=== PATIENT | male | born 1940 | race Caucasian/White ===

== ENCOUNTER 2023-09-07 07:29 | Emergency (ER) | payer MEDICARE, SELFPAY ==
[2023-09-07] VITALS (10 sets, daily range): BP systolic 112–155; BP diastolic 82–102; PULSE 83; O2SAT 98; BMI 26.1
[2023-09-07 07:50] LABS: % Basophils 0.5 % (0-2); % Eosinophils 2.9 % (0-6); % Immature Granulocytes 0.3 % (0-0.5); % Lymphocytes 26.1 % (20.5-51.1); % Monocytes 10.6 % (1.7-9.3); % Neutrophils 59.6 % (42.2-75.2); Absolute Eosinophils 0.2 10^3/uL (0-0.7); Absolute Lymphocytes 1.9 10^3/uL (1.2-3.4); Absolute Monocytes 0.8 10^3/uL (0.1-0.6); Absolute Neutrophils 4.4 10^3/uL (1.4-6.5); Hematocrit 39.6 % (39.0-52.0); Hemoglobin 13.6 g/dL (13.0-18.0); Mean Corp Hgb Conc. 34.3 g/dL (33.0-37.0); Mean Corpuscular Hgb 27.9 pg (27.0-31.0); Mean Corpuscular Volume 81.3 fL (80.0-94.0); Mean Platelet Volume 9.3 fL (7.4-10.4); Nucleated Red Blood Cells % 0 % (-); Platelet Count 217 10^3/uL (130-400); Red Blood Cell Count 4.87 10^6/uL (4.70-6.10); White Blood Cell Count 7.3 10^3/uL (4.8-10.8)
[2023-09-07 07:51] LABS: Urine Albumin Negative (Neg - Trace); Urine Bilirubin Negative (Negative); Urine Character Clear (Clear); Urine Color Yellow; Urine Glucose Negative (Negative); Urine Ketone Negative (Negative); Urine Leukocyte Negative (Negative); Urine Nitrite Negative (Negative); Urine Occult Blood Negative (Negative); Urine Urobilinogen Negative (Neg - 1+); Urine pH 6.5 (5.0-9.0)
--- NOTE | 2023-09-07 08:08 | ED.GENMED ---
History of Present Illness
<Lucrecia Yates MD, Resident - Last Filed: 09/07/23 12:09>
General
Chief Complaint: Fall
Source: patient
Time Seen by Provider: 09/07/23 07:46
History of Present Illness
History of Present Illness:
Pt is a 83 YO M with history of CAD, stroke and HTN on blood thinners and reports falling from curb and hitting back of head this morning when retrieving a package. Pt usually uses a cane for ambulation, but did not when fall occurred. Was brought
to ED by and daughter. Reports no headaches, pain in head or neck, LOC, memory changes or ongoing weakness in extremities. Did report some blurriness at time of fall, now resolved, and loss of balance.
If applicable-neuro sx onset
Onset of symptoms known: Yes
Date of onset of symptoms: 09/07/23
Past History
<Lucrecia Yates MD, Resident - Last Filed: 09/07/23 12:09>
Past History
ED Past Medical History: Arrthythmia (Atrial fib), CAD, HTN, Hypercholesterolemia, NIDDM and [place]
ED Past Surgical History: Appendectomy, Bowel resection (Subtotal gastrectomy), Cardiac (Stents X 2), Cholecystectomy and Other
Social History
Tobacco: Non-smoker
Alcohol: Former
Drug: None
Personal:
Living: with family
Employment: Retired
Family History
Family History: Other (Noncontributory)
Review of Systems
<Lucrecia Yaets MD, Resident - Last Filed: 09/07/23 12:09>
Review of Systems
Allergies reviewed?: No
Constitutional: Reports no symptoms
EENT: Reports no symptoms and other (mild blurriness post fall)
Respiratory: Reports no symptoms
ABD/GI: Reports no symptoms
Musculoskeletal: Reports no symptoms
Neurological: Reports weakness and other (loss of balance)
Phy Exam
<Lucrecia Yates MD, Resident - Last Filed: 09/07/23 12:09>
General Physical Exam
General Presentation: well appearing and no apparent distress
General age: appears stated age
General Habitus: normal
General Mental: alert
Eye Exam
Eye Exam: PERRL, conjunctiva normal and visual sherwood normal
Cardiovascular Exam
Cardiovascular Exam: regular rate/rhythm, no edema, no gallop, no JVD and no murmur
Pulmonary Exam
Pulmonary Exam: lungs clear, no respiratory distress, no rales, chest non tender, no crackles, no rhonchi and no cough
Neurological Exam
Neurological Exam: alert, oriented x3, no motor deficits, no sensory deficits and other (slowed speech)
Musculoskeletal Exam
Musculoskeletal Exam: full ROM, no edema and other (no back or head pain)
Psychiatric Exam
Psychiatric Exam: other (unclear if pt is confused or just hard of hearing )
Course
<Lucrecia Yates MD, Resident - Last Filed: 09/07/23 12:09>
Orders/Labs/Results
Orders:
Orders
09/07/23 07:39
Electrocardiogram (*1) Urgent
Reason for Study: Atrial Fibrillation
EKG- Treatment ONCE
09/07/23 07:41
Basic Metabolic Panel Urgent
Comment: NO K HEM
Complete Blood Count/With Diff Urgent
Urinalysis Reflex To Culture Urgent
Date Specimen was Collected: 09/07/23
Time Specimen was Collected: 07:39
09/07/23 08:21
CT Head W/o Iv Contrast Urgent
Comment:
Reason For Exam: fall, hit head, xarelto
09/07/23 10:16
Physical Therapy Consult [Pt Eval And Treat] Urgent
Activity Level: With Assistance
09/07/23 11:21
Case Management Consult ONCE
Case Management Consult: Discharge Planning
Requested By:: NURSING
Abnormal Lab Results
09/07/23
07:41
RDW 15.0 H %
(11.5-14.5)
Absolute Monos (auto) 0.8 H 10^3/uL
(0.1-0.6)
Monocytes % 10.6 H %
(1.7-9.3)
Glucose 105 H mg/dl
(70-99)
09/07/23 07:41
09/07/23 07:41
Vital Signs
Initial and Last Documented VS:
Initial Vital Signs
Temp Pulse Resp BP Pulse Ox
98.1 F 89 16 149/89 97
09/07/23 07:33 09/07/23 07:33 09/07/23 07:33 09/07/23 07:33 09/07/23 07:33
Last Documented Vital Signs
Temp Pulse Resp BP Pulse Ox
98.1 F 82 11 155/95 97
09/07/23 07:33 09/07/23 12:00 09/07/23 12:00 09/07/23 12:00 09/07/23 12:00
<Jerry Alvarado, DO - Last Filed: 09/07/23 13:46>
Orders/Labs/Results
Orders:
Orders
09/07/23 07:39
Electrocardiogram (*1) Urgent
Reason for Study: Atrial Fibrillation
EKG- Treatment ONCE
09/07/23 07:41
Basic Metabolic Panel Urgent
Comment: NO K HEM
Complete Blood Count/With Diff Urgent
Urinalysis Reflex To Culture Urgent
Date Specimen was Collected: 09/07/23
Time Specimen was Collected: 07:39
09/07/23 08:21
CT Head W/o Iv Contrast Urgent
Comment:
Reason For Exam: fall, hit head, xarelto
09/07/23 10:16
Physical Therapy Consult [Pt Eval And Treat] Urgent
Activity Level: With Assistance
09/07/23 11:21
Case Management Consult ONCE
Case Management Consult: Discharge Planning
Requested By:: NURSING
Abnormal Lab Results
09/07/23
07:41
RDW 15.0 H %
(11.5-14.5)
Absolute Monos (auto) 0.8 H 10^3/uL
(0.1-0.6)
Monocytes % 10.6 H %
(1.7-9.3)
Glucose 105 H mg/dl
(70-99)
09/07/23 07:41
09/07/23 07:41
Vital Signs
Initial and Last Documented VS:
Initial Vital Signs
Temp Pulse Resp BP Pulse Ox
98.1 F 89 16 149/89 97
09/07/23 07:33 09/07/23 07:33 09/07/23 07:33 09/07/23 07:33 09/07/23 07:33
Last Documented Vital Signs
Temp Pulse Resp BP Pulse Ox
98.1 F 82 11 155/95 97
09/07/23 07:33 09/07/23 12:00 09/07/23 12:00 09/07/23 12:00 09/07/23 12:00
<Lucrecia Yates MD, Resident - Last Filed: 09/07/23 12:09>
MDM/Problems Addressed
Differential Diagnosis Includes:
fall
MDM/Problems Addressed:
83 YO M with history of stroke and frequent falls presented to ED after fall. He reports hitting the back of his head and is on blood thinners. Labs were normal and CT head was clear. Recommendations to DC home but to use walker consistently for
ambulatory support.
Chronic conditions affecting care:
stroke
Chronic conditions affecting care: HTN, CAD and Arrhythmia
Acute Exacerbation and/or Progression of Chronic Illness: HTN, CAD, Arrhythmia and Other (stroke)
<Lucrecia Yates MD, Resident - Last Filed: 09/07/23 12:09>
*Radiology
Radiology exam reviewed: preliminary read by ED provider
*Critical Care Note
Total Time (30-74mins, 75-104mins- exclusive of procedures): Not Applicable
<Jerry Alvarado, DO - Last Filed: 09/07/23 13:46>
*Radiology
Radiology exam reviewed: radiology read reviewed (CT head no acute findings)
*Pulse Oximetry
Patient hypoxic: no
*EKG
Interpreted by ED Provider?: Yes
EKG Intrepretation Date: 09/07/23
EKG Intrepretation Time: 07:49
Interpretation: abnormal
Comparison EKG: changes noted
Heart Rate: 81
Rate: normal
Rhythm: a-fib
[place]: normal axis
Interval: normal interval
QRS Pattern: normal QRS
Ischemia: non-specific ST changes
*Personal Vehicle Advisor Interpretation
Rate: normal
Interpretation: abnormal
Heart Rate: 80
Rhythm: a-fib
Data Reviewed
Review of Other/Old Records Reveals: Testing (EF 50-55 08/06/22)
Source: records
<Jerry Alvarado, - Last Filed: 09/07/23 13:46>
Patient Management
Discussion with other providers: Other (PT-pt ambulated well with walker)
Escalation/DeEscalation of care consider admission/obs:
admit not indicated
ED Attending Note
<Lucrecia Yates MD, Resident - Last Filed: 09/07/23 12:09>
-
Portions of this chart may have been created with voice recognition software.� Occasional wrong word or��sound alike� substitutions may have occurred due to the inherent limitations of voice recognition software.
<Jerry Alvarado DO - Last Filed: 09/07/23 13:46>
ED Attending Note
Patient seen and examined by attending physician: Yes
I performed a history and physical exam of patient and discussed management with resident, I reviewed resident's note and agree with documented findings and plan of care.: Yes
ED Attending Note:
I have reviewed and agree with history and treatment plan by Lucrecia Yates DO. My exam revealed
Physical Exam
General: no apparent distress, not acutely ill
Neck: supple. no meningeal signs. normal posterior pharynx
Heart: s1/s2 regular rate and rhythm, no murmur. equal radial
pulses.
HEENT: Pupils equal round reactive to light, EOMI
Lungs: no acute respiratory distress. clear bilaterally
Abdomen: normal bowel sounds. not tender. no CVAT
Neuro: alert and oriented. no focal neurological deficits cranial nerves II through XII intact
Skin: no rash, abrasion left thumb 0.5 cm
Psychiatric: well kept. interactive and cooperative
Extremities: no edema. no calf tenderness. negative homans. good distal pulses
83-year-old male with fall, admit not indicated. No signs of serious trauma. Patient ambulated well with walker with PT.
Discharge Plan
Departure
Patient Disposition: Home (Routine Discharge)
Date of Disposition: 09/07/23
Time of Disposition: 10:50
Patient with high blood pressure during this ER visit?: Yes
Condition: Fair
Discharge Problem:
Fall as cause of accidental injury at home as place of occurrence
Instructions: Preventing falls in adults, BLOOD PRESSURE
Prescriptions:
No Action
escitalopram oxalate [Lexapro] 10 mg Tablet
10 mg PO DAILY
isosorbide mononitrate 30 mg Tablet Extended Release 24 Hr
30 mg PO DAILY Qty: 30 11RF
Xarelto 20 mg Tablet
20 mg PO QPM Qty: 30 0RF
pantoprazole [Protonix] 40 mg tablet,delayed release (DR/EC)
40 mg PO DAILY Qty: 30 0RF
rosuvastatin 10 mg Tablet
10 mg PO DAILY Qty: 30 0RF
multivitamin [Daily Multi-Vitamin] Tablet
1 tab PO DAILY Qty: 30 0RF
trazodone 100 mg tablet
100 mg PO HS Qty: 30 0RF
tamsulosin 0.4 mg Capsule
0.4 mg PO DAILY Qty: 30 0RF
melatonin 3 mg Tablet
6 mg PO HS Qty: 60 0RF
lorazepam 0.5 mg Tablet
0.5 mg PO BID@0700,2000 Qty: 60 0RF
nitroglycerin 0.4 mg Tablet, Sublingual
0.4 mg sublingual [id number] PRN (Reason: CHEST PAIN) Qty: 10 0RF
metoprolol succinate [Toprol XL] 50 mg tablet extended release 24 hr
50 mg PO Q12H Qty: 60 0RF
Referrals:
Kristal Storm DO [Family Provider] - Call in 1-3 days for appt
Interventions
Interventions:
*Risk Screen - Suicide Last Done: 09/07/23 07:33
*General Assessment Last Done: 09/07/23 07:33
*Neglect/Abuse Screening Last Done: 09/07/23 07:33
*ED COVID-19 Vaccine History Last Done: 09/07/23 07:33
ED-Musculoskeletal Assessment Last Done: 09/07/23 07:37
ED- Neurological Assessment Last Done: 09/07/23 07:37
ED-Skin Assessment Last Done: 09/07/23 08:29
Discharge Date and Time
Print Language: KOREAN
[2023-09-07 08:14] LABS: Blood Urea Nitrogen 18 mg/dl (9-20); Calcium 9.2 mg/dl (8.4-10.2); Carbon Dioxide 28 mmol/L (22-30); Chloride 105 mmol/L (98-107); Estimated Creatinine Clearance 85 ml/min; Glucose 105 mg/dl (70-99); Sodium 137 mmol/L (135-145); eGFR > 60.00
--- NOTE | 2023-09-07 13:53 | CM ---
Received consult from ED for discharge planning. Met with patient's RN who confirmed that patient is stable medically. PT met with patient and upon using his walker is damian. Patient stated that he lives in an apartment with elevator access. He
confirmed that he is independent with all of his ADLs, personal care, dressing and bathing. 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 Besides his cane and walker he does have a w/c.
Patient has had VN in the past through [facility].
He has never been to a SNF in the past and does not want to transition to one now.
Patient is agreeable to VN through . Will make referral.
Patient has a prescription plan and uses, [facility] for all of his medications.
His PCP is Kristal Storm.
Permission was obtained to call patient's . Placed a call to her and she stated that she has a lot of marital strain as patient frequently falls but will neglect to use his walker. She stated that he will purposely neglect to do whatever is
indicated by medical staff. VN services were not helpful last time as, when they left, he would cease to do what they had advised, she relayed.
Patient's admitted that this is more of a personal issue between the two of them that has been going on for years. She stated that she has tried counseling and nothing has worked. She stated that their children are not that supportive as they
are 'tired of her complaining'
Patient's stated that is patient is medically stable, her daughter Yolanda will be in to pick him up soon.
Plan: Case management will continue to follow and assist with discharge planning. Home with VN.
--- NOTE | 2023-09-07 14:44 | VNURNOTE ---
Home Health Liaison spoke with patient's Abby to discuss VN nurse/therapy, visits, schedule and homebound status. Per spouse, last time they had home care 'it was a waste.' No penitentiary needs identified, but this author asked
patient's spouse if patient could benefit from home physical therapy due to frequent falls. Spouse stated patient had home P.T. in the past and 'yes'ed them' but refused to do exercises. Spouse declined services at this time. No referral placed.
== END 2023-09-07 15:00 | disposition home or self-care (01) ==
LOC: EMR 07:29
PROVIDERS: EMERGENCY PHYSICIAN Emergency Medicine; FAMILY PHYSICIAN Family Medicine
DX: S09.90XA Unspecified injury of head, initial encounter (principal); R53.1 Weakness; H53.8 Other visual disturbances; R26.89 Other abnormalities of gait and mobility; W10.1XXA Fall (on)(from) sidewalk curb, initial encounter; I25.10 Atherosclerotic heart disease of native coronary artery without angina pectoris; I10 Essential (primary) hypertension; E11.9 Type 2 diabetes mellitus without complications; E78.00 Pure hypercholesterolemia, unspecified; I48.91 Unspecified atrial fibrillation; I25.2 Old myocardial infarction; Z95.5 Presence of coronary angioplasty implant and graft; Z86.73 Personal history of transient ischemic attack (TIA), and cerebral infarction without residual deficits; Z79.01 Long term (current) use of anticoagulants; Z98.0 Intestinal bypass and anastomosis status; Z90.49 Acquired absence of other specified parts of digestive tract; Z88.8 Allergy status to other drugs, medicaments and biological substances
CPT/HCPCS: 99284; 70450; 80048; 81003; 85025; 93005

== ENCOUNTER 2023-11-04 15:19 | Emergency (ER) | payer MEDICARE, SELFPAY ==
[2023-11-04 15:23] VITALS: BP 107/72
[2023-11-04 15:43] LABS: % Basophils 0.6 % (0-2); % Eosinophils 0.9 % (0-6); % Immature Granulocytes 0.2 % (0-0.5); % Lymphocytes 10.5 % (20.5-51.1); % Monocytes 7.6 % (1.7-9.3); % Neutrophils 80.2 % (42.2-75.2); Absolute Basophils 0.1 10^3/uL (0-0.2); Absolute Eosinophils 0.1 10^3/uL (0-0.7); Absolute Lymphocytes 0.9 10^3/uL (1.2-3.4); Absolute Monocytes 0.6 10^3/uL (0.1-0.6); Absolute Neutrophils 6.5 10^3/uL (1.4-6.5); Hematocrit 39.9 % (39.0-52.0); Hemoglobin 13.9 g/dL (13.0-18.0); Mean Corp Hgb Conc. 34.8 g/dL (33.0-37.0); Mean Corpuscular Hgb 29.8 pg (27.0-31.0); Mean Corpuscular Volume 85.4 fL (80.0-94.0); Mean Platelet Volume 9.1 fL (7.4-10.4); Nucleated Red Blood Cells % 0 % (-); Platelet Count 213 10^3/uL (130-400); Red Blood Cell Count 4.67 10^6/uL (4.70-6.10); Red Cell Dist. Width 14.6 % (11.5-14.5); White Blood Cell Count 8.1 10^3/uL (4.8-10.8)
[2023-11-04 15:57] LABS: ALT (SGPT) 11 U/L (0-50); APTT 26.8 Sec (23.4-35.0); AST (SGOT) 20 U/L (17-59); Alkaline Phosphatase 96 U/L (38-126); Blood Urea Nitrogen 18 mg/dl (9-20); Calcium 9.5 mg/dl (8.4-10.2); Carbon Dioxide 29 mmol/L (22-30); Chloride 103 mmol/L (98-107); Glucose 203 mg/dl (70-99); Magnesium 1.9 mg/dl (1.6-2.3); Potassium 4.7 mmol/L (3.5-5.1); Sodium 140 mmol/L (135-145); Total Protein 6.9 g/dl (6.3-8.2); eGFR > 60.00
[2023-11-04 16:10] LABS: Troponin I < 0.012 ng/ml
[2023-11-04 16:26] LABS: TSH Reflex To Free T4 1.77 uIU/ml (0.47-4.68)
[2023-11-04 17:18] VITALS: BMI 27.0
--- NOTE | 2023-11-04 17:35 | ED.GENMED ---
History of Present Illness
General
Chief Complaint: Cardiac Symptoms
Source: patient and records
Exam Limitations: none
Time Seen by Provider: 11/04/23 17:15
Nursing documentation reviewed up to this point in time: agreed with
History of Present Illness
History of Present Illness:
83-year-old male presents for evaluation of chest pain onset last evening fairly severe per the patient he is unable to tell me how long it lasted for or for radiated, symptoms resolved returned this afternoon less severe, unsure if he had
fast heart rates or was short of breath, admits to being noncompliant with his meds, prior history was obtained through my review of the prior admission to the hospitalist service with cardiology consultation with a similar appearing presentation
apparently had a prior subarachnoid hemorrhage, was apparently to be on anticoagulation and beta-lars long-acting nitrates Lexapro nitroglycerin Protonix trazodone Flomax
Is unsure who his stone rougher is, he does live with his , cooperative here,
Past History
Past History
ED Past Medical History: Arrthythmia (Atrial fib), CAD, HTN, Hypercholesterolemia, NIDDM and [place]
ED Past Surgical History: Appendectomy, Bowel resection (Subtotal gastrectomy), Cardiac (Stents X 2), Cholecystectomy and Other
Social History
Tobacco: Non-smoker
Alcohol: Former
Drug: None
Personal:
Living: with family
Employment: Retired
Family History
Family History: Other (Noncontributory)
Review of Systems
Review of Systems
All Other Systems: Not applicable
Constitutional: Denies fever or fatigue
EENT: Reports no symptoms
Respiratory: Reports no symptoms
Cardiac: Reports chest pain; Denies palpitations or syncope
ABD/GI: Reports no symptoms
: Reports no symptoms
Musculoskeletal: Reports no symptoms
Skin: Reports no symptoms
Neurological: Reports no symptoms
Endocrine: Reports no symptoms
Phy Exam
Physical Exam
Physical Exam:
Physical Exam
General: no apparent distress, not acutely ill
Neck: No jaundice
Heart: Irregular at 105 bpm
Lungs: no acute respiratory distress. clear bilaterally
Abdomen: Nontender
Neuro: alert and oriented. Hard of hearing moves all extremities
Skin: no rash
Psychiatric: cooperative
Extremities: no edema. no calf tenderness.
Scores
Heart Score for Chest Pain Patients
STEMI patient?: No
History: Slightly or Non-Suspicious
ECG: Nonspecific Repolarization
Age: >/= 65 years
Risk Factors: >/= 3 Risk Factors or History of CAD
Troponin: </= Normal Limit
Heart Score for Chest Pain Patients: 5
Heart Score Risk: 20.3% MACE over next 6 weeks
Course
Orders/Labs/Results
Orders:
Orders
11/04/23 15:25
Electrocardiogram (*1) Urgent
Reason for Study: Chest Pain
CR Chest - 2 Views Urgent
Comment:
Reason For Exam: chest pain
11/04/23 15:26
EKG- Treatment ONCE
11/04/23 15:32
Complete Blood Count/With Diff Urgent
Comprehensive Metabolic Panel Urgent
Magnesium Urgent
PTT Urgent
TSH Reflex To Free T4 Urgent
Troponin I Urgent
11/04/23 17:31
CT Head W/o Iv Contrast Urgent
Comment:
Reason For Exam: confusion, AF prior SAH
11/04/23 17:32
Metoprolol Xl [Toprol Xl] 50 mg PO NOW STA
11/04/23 17:53
Troponin I Urgent
11/04/23 19:58
Troponin I Urgent
Abnormal Lab Results
11/04/23
15:32
RBC 4.67 L 10^6/uL
(4.70-6.10)
RDW 14.6 H %
(11.5-14.5)
Absolute Lymphs (auto) 0.9 L 10^3/uL
(1.2-3.4)
Neutrophils % 80.2 H %
(42.2-75.2)
Lymphocytes % 10.5 L %
(20.5-51.1)
Glucose 203 H mg/dl
(70-99)
11/04/23 15:32
11/04/23 15:32
Vital Signs
Initial and Last Documented VS:
Initial Vital Signs
Temp Pulse Resp BP Pulse Ox
98.3 F 115 18 107/72 98
11/04/23 15:23 11/04/23 15:23 11/04/23 15:23 11/04/23 15:23 11/04/23 15:23
Last Documented Vital Signs
Temp Pulse Resp BP Pulse Ox
98.3 F 83 20 129/91 96
11/04/23 15:23 11/04/23 19:30 11/04/23 19:30 11/04/23 19:00 11/04/23 19:30
MDM/Problems Addressed
Differential Diagnosis Includes:
Angina, conceivably PE, med noncompliance, A-fib, heart failure
MDM/Problems Addressed:
Chest pain
Chronic conditions affecting care:
Noncompliance
Chronic conditions affecting care: HTN and CAD
Acute Exacerbation and/or Progression of Chronic Illness:
Noncompliance
Acute Exacerbation and/or Progression of Chronic Illness: HTN and CAD
*Radiology
Radiology exam reviewed: radiology read reviewed
*Pulse Oximetry
Patient hypoxic: no
*EKG
Interpreted by ED Provider?: Yes
Interpretation: abnormal
Comparison EKG: changes noted
Heart Rate: 106
Rate: tachycardiac
Rhythm: a-fib
Ischemia: non-specific ST changes
*Batch Trucker Interpretation
Rate: tachycardiac
Interpretation: abnormal
Heart Rate: 102
Rhythm: a-fib
*Critical Care Note
Total Time (30-74mins, 75-104mins- exclusive of procedures): Not Applicable
Data Reviewed
Review of Other/Old Records Reveals: Labs and Records
Source: patient and previous hospital records
Update Note
Update Note:
8 PM update patient resting comfortably with stable vital signs, labs are noted, he states he had fairly strong chest pain 5 nights ago
He states he would like to go home, will try to arrange outpatient follow-up with cardiology, through the chest pain hotline, I did encourage him to take his meds as prescribed as this would be the most important thing to alleviate his angina, I did
reviewed prior cardiology notes conservative plan was advocated for which appears to be reasonable based on the patient's history
ED Attending Note
-
Portions of this chart may have been created with voice recognition software.� Occasional wrong word or��sound alike� substitutions may have occurred due to the inherent limitations of voice recognition software.
Discharge Plan
Departure
Patient Disposition: Home (Routine Discharge)
Date of Disposition: 11/04/23
Time of Disposition: 20:08
Patient with high blood pressure during this ER visit?: No
Condition: Good
Covid-19: Not Applicable
Discharge Problem:
Chest pain
Instructions: Chest Pain DCA Follow Up
Prescriptions:
No Action
escitalopram oxalate [Lexapro] 10 mg Tablet
10 mg PO DAILY
isosorbide mononitrate 30 mg Tablet Extended Release 24 Hr
30 mg PO DAILY Qty: 30 11RF
Xarelto 20 mg Tablet
20 mg PO QPM Qty: 30 0RF
pantoprazole [Protonix] 40 mg tablet,delayed release (DR/EC)
40 mg PO DAILY Qty: 30 0RF
rosuvastatin 10 mg Tablet
10 mg PO DAILY Qty: 30 0RF
multivitamin [Daily Multi-Vitamin] Tablet
1 tab PO DAILY Qty: 30 0RF
trazodone 100 mg tablet
100 mg PO HS Qty: 30 0RF
tamsulosin 0.4 mg Capsule
0.4 mg PO DAILY Qty: 30 0RF
melatonin 3 mg Tablet
6 mg PO HS Qty: 60 0RF
lorazepam 0.5 mg Tablet
0.5 mg PO BID@0700,2000 Qty: 60 0RF
nitroglycerin 0.4 mg Tablet, Sublingual
0.4 mg sublingual [id number] PRN (Reason: CHEST PAIN) Qty: 10 0RF
metoprolol succinate [Toprol XL] 50 mg tablet extended release 24 hr
50 mg PO Q12H Qty: 60 0RF
Referrals:
Kristal Storm DO [Family Provider] - Next open appointment
Amrik Quiroga MD [Active] - Next open appointment
Interventions
Interventions:
*Risk Screen - Suicide Last Done: 11/04/23 15:23
*General Assessment Last Done: 11/04/23 15:23
*Neglect/Abuse Screening Last Done: 11/04/23 15:23
*ED COVID-19 Vaccine History Last Done: 11/04/23 17:18
ED- Pulmonary Assessment Last Done: 11/04/23 17:18
ED- Cardiac Assessment Last Done: 11/04/23 17:18
Discharge Date and Time
Print Language: SYRIAC
[2023-11-04] MEDS: TOPROL XL 50 MG PO (18:01)
[2023-11-04 18:29] LABS: Troponin I 0.032 ng/ml
[2023-11-04 18:48] VITALS: BP 129/92
[2023-11-04 19:00] VITALS: BP 129/91
[2023-11-04 20:00] VITALS: BP 135/76
[2023-11-04] MEDS: IMDUR (EXTENDED RELEASE) 30 MG PO (21:10)
== END 2023-11-04 21:38 | disposition home or self-care (01) ==
LOC: EMR 15:19
PROVIDERS: EMERGENCY PHYSICIAN Emergency Medicine; FAMILY PHYSICIAN Family Medicine
DX: R07.89 Other chest pain (principal); I48.91 Unspecified atrial fibrillation; I25.10 Atherosclerotic heart disease of native coronary artery without angina pectoris; I10 Essential (primary) hypertension; E78.00 Pure hypercholesterolemia, unspecified; E11.9 Type 2 diabetes mellitus without complications; I25.2 Old myocardial infarction; Z86.79 Personal history of other diseases of the circulatory system; Z90.49 Acquired absence of other specified parts of digestive tract; Z91.199 Patient's noncompliance with other medical treatment and regimen due to unspecified reason; Z95.5 Presence of coronary angioplasty implant and graft
CPT/HCPCS: 99284; 70450; 71046; 80053; 83735; 84443; 84484; 85025; 85730; 93005

== ENCOUNTER 2024-05-12 10:37 | Emergency (ER) | payer MEDICARE, SELFPAY ==
[2024-05-12 10:41] VITALS: BP 170/100
[2024-05-12] MEDS: OMNIPAQUE 50 ML PO (11:48)
[2024-05-12 12:00] VITALS: BP 183/101
[2024-05-12 12:04] LABS: % Eosinophils 2.5 % (0-6); % Immature Granulocytes 0.2 % (0-0.5); % Lymphocytes 22.1 % (20.5-51.1); % Monocytes 9.2 % (1.7-9.3); Absolute Basophils 0.1 10^3/uL (0-0.2); Absolute Eosinophils 0.2 10^3/uL (0-0.7); Absolute Lymphocytes 1.4 10^3/uL (1.2-3.4); Absolute Monocytes 0.6 10^3/uL (0.1-0.6); Absolute Neutrophils 4.1 10^3/uL (1.4-6.5); Hematocrit 35.3 % (39.0-52.0); Hemoglobin 12.1 g/dL (13.0-18.0); Mean Corp Hgb Conc. 34.3 g/dL (33.0-37.0); Mean Corpuscular Volume 84.7 fL (80.0-94.0); Mean Platelet Volume 8.9 fL (7.4-10.4); Nucleated Red Blood Cells % 0 % (-); Platelet Count 208 10^3/uL (130-400); Red Blood Cell Count 4.17 10^6/uL (4.70-6.10); Red Cell Dist. Width 14.5 % (11.5-14.5); White Blood Cell Count 6.3 10^3/uL (4.8-10.8)
[2024-05-12 12:34] LABS: ALT (SGPT) 11 U/L (0-50); AST (SGOT) 22 U/L (17-59); Albumin 3.6 g/dl (3.5-5.0); Alkaline Phosphatase 70 U/L (38-126); Blood Urea Nitrogen 21 mg/dl (9-20); Calcium 9.1 mg/dl (8.4-10.2); Carbon Dioxide 27 mmol/L (22-30); Chloride 107 mmol/L (98-107); Glucose 94 mg/dl (70-99); Lipase 31 U/L (23-300); Potassium 4.7 mmol/L (3.5-5.1); Sodium 138 mmol/L (135-145); Total Bilirubin 1.1 mg/dl (0.2-1.3); Total Protein 6.6 g/dl (6.3-8.2); eGFR > 60.00
[2024-05-12 12:50] LABS: Urine Albumin Negative (Neg - Trace); Urine Bilirubin Negative (Negative); Urine Character Clear (Clear); Urine Color Yellow; Urine Glucose Negative (Negative); Urine Ketone Negative (Negative); Urine Leukocyte Negative (Negative); Urine Nitrite Negative (Negative); Urine Occult Blood Negative (Negative); Urine Specific Gravity 1.015 (<1.030); Urine Urobilinogen Negative (Neg - 1+)
[2024-05-12 13:00] VITALS: BP 149/104
--- NOTE | 2024-05-12 14:19 | ED.GENMED ---
History of Present Illness
General
Chief Complaint: Abdominal Symptoms
Source: patient
Exam Limitations: none
Time Seen by Provider: 05/12/24 11:26
Nursing documentation reviewed up to this point in time: agreed with
History of Present Illness
History of Present Illness:
Patient presents to ED secondary to worsening lower abdominal pain over the past 2 years, which has worsened over the past 2 days. Abdominal pain described as pressure, nonradiating, without any alleviating or exacerbating factors. Denies fever or
chills. Denies trauma. Patient reports urinary frequency. Patient states that he was evaluated by urologist since onset of symptoms, and has had outpatient workup, but does not know the results. Denies recent change in medications or diet.
Denies change in bowel habits. Denies recent illness.
Past History
Past History
ED Past Medical History: Arrthythmia (Atrial fib), CAD, HTN, Hypercholesterolemia, NIDDM and [place]
ED Past Surgical History: Appendectomy, Bowel resection (Subtotal gastrectomy), Cardiac (Stents X 2), Cholecystectomy and Other
Social History
Tobacco: Non-smoker
Alcohol: Former
Drug: None
Personal:
Living: with family
Employment: Retired
Family History
Family History: Other (Noncontributory)
Review of Systems
Review of Systems
Allergies reviewed?: Yes
All Other Systems: ROS reviewed and negative except as documented in HPI and ROS
Constitutional: Reports no symptoms; Denies fever
Respiratory: Reports no symptoms
ABD/GI: Reports abdominal pain; Denies vomiting, diarrhea or constipated
: Reports frequency
Musculoskeletal: Reports no symptoms
Skin: Reports no symptoms
Neurological: Reports no symptoms
Phy Exam
Physical Exam
Physical Exam:
Physical Exam
General: no apparent distress, not acutely ill. afebrile
Head: nc/at. eomi
Neck: supple. normal range of motion.
Heart: s1/s2 regular rate and rhythm, no murmur.
Lungs: no acute respiratory distress. clear bilaterally
Abdomen: normal bowel sounds. not tender. no distention
Neuro: alert and oriented x 3. no focal neurological deficits
Skin: no rash
Psychiatric: well kept. interactive and cooperative
Extremities: no edema. no calf tenderness.
Course
Orders/Labs/Results
Orders:
Orders
05/12/24 11:37
Iohexol [Omnipaque] See Protocol PO NOW STA
05/12/24 11:38
CT Abd/pel W Iv And Oral Contr Urgent
Comment:
Reason For Exam: lower abdominal pain
05/12/24 11:52
Complete Blood Count/With Diff Urgent
Comprehensive Metabolic Panel Urgent
Lipase Urgent
05/12/24 12:27
Urinalysis Reflex To Culture Urgent
Date Specimen was Collected: 05/12/24
Time Specimen was Collected: 11:45
Abnormal Lab Results
05/12/24
11:52
RBC 4.17 L 10^6/uL
(4.70-6.10)
Hgb 12.1 L g/dL
(13.0-18.0)
Hct 35.3 L %
(39.0-52.0)
BUN 21 H mg/dl
(9-20)
05/12/24 11:52
05/12/24 11:52
Vital Signs
Initial and Last Documented VS:
Initial Vital Signs
Temp Pulse Resp Pulse Ox
97.6 F 99 16 99
05/12/24 10:38 05/12/24 10:38 05/12/24 10:38 05/12/24 10:38
Last Documented Vital Signs
Temp Pulse Resp BP Pulse Ox
97.6 F 72 13 149/104 98
05/12/24 10:38 05/12/24 13:30 05/12/24 13:30 05/12/24 13:00 05/12/24 13:30
MDM/Problems Addressed
MDM/Problems Addressed:
CT report reviewed and discussed with patient. In addition, CT report findings related to bladder inflammation along with prostate enlargement discussed with on-call urology, Dr. Guevara. Does not feel that patient needs antibiotics at this
time. As such, patient will be discharged home, with recommendation to follow-up with urology as an outpatient.
*Critical Care Note
Total Time (30-74mins, 75-104mins- exclusive of procedures): Not Applicable
ED Attending Note
-
Portions of this chart may have been created with voice recognition software.� Occasional wrong word or��sound alike� substitutions may have occurred due to the inherent limitations of voice recognition software.
Discharge Plan
Departure
Patient Disposition: Home (Routine Discharge)
Date of Disposition: 05/12/24
Time of Disposition: 15:14
Patient with high blood pressure during this ER visit?: Yes
Condition: Good
Discharge Problem:
Prostate enlargement
Instructions: Benign prostatic hyperplasia (enlarged prostate)
Prescriptions:
No Action
escitalopram oxalate [Lexapro] 10 mg Tablet
10 mg PO DAILY
isosorbide mononitrate 30 mg Tablet Extended Release 24 Hr
30 mg PO DAILY Qty: 30 11RF
Xarelto 20 mg Tablet
20 mg PO QPM Qty: 30 0RF
pantoprazole [Protonix] 40 mg tablet,delayed release (DR/EC)
40 mg PO DAILY Qty: 30 0RF
rosuvastatin 10 mg Tablet
10 mg PO DAILY Qty: 30 0RF
multivitamin [Daily Multi-Vitamin] Tablet
1 tab PO DAILY Qty: 30 0RF
trazodone 100 mg tablet
100 mg PO HS Qty: 30 0RF
tamsulosin 0.4 mg Capsule
0.4 mg PO DAILY Qty: 30 0RF
melatonin 3 mg Tablet
6 mg PO HS Qty: 60 0RF
lorazepam 0.5 mg Tablet
0.5 mg PO BID@0700,2000 Qty: 60 0RF
nitroglycerin 0.4 mg Tablet, Sublingual
0.4 mg sublingual [id number] PRN (Reason: CHEST PAIN) Qty: 10 0RF
metoprolol succinate [Toprol XL] 50 mg tablet extended release 24 hr
50 mg PO Q12H Qty: 60 0RF
Referrals:
Bhanu Guevara MD [Active] -
UNKNOWN - PT DOES,NOT KNOW [Family Provider] -
Activity Restrictions/Additional Instructions:
As discussed, please follow-up with referred urologist for further evaluation and treatment. Please consider return to ED with worsening symptoms, i.e. fever/worsening pain/inability to urinate.
Interventions
Interventions:
*Risk Screen - Suicide Last Done: 05/12/24 10:38
*General Assessment Last Done: 05/12/24 11:55
*Neglect/Abuse Screening Last Done: 05/12/24 10:38
*ED- Fall Risk Assessment Last Done: 05/12/24 11:54
*ED COVID-19 Vaccine History Last Done: 05/12/24 11:54
*Nursing Disposition Last Done: 05/12/24 16:13
MS-Ycfrkp-Kudqcwklnh Assessment Last Done: 05/12/24 11:54
Discharge Date and Time
Discharge Date/Time: 05/12/24 16:15
Print Language: KAZAKH
== END 2024-05-12 16:15 | disposition home or self-care (01) ==
LOC: EMR 10:37
PROVIDERS: EMERGENCY PHYSICIAN Emergency Medicine
DX: N40.0 Benign prostatic hyperplasia without lower urinary tract symptoms (principal); I48.91 Unspecified atrial fibrillation; I25.10 Atherosclerotic heart disease of native coronary artery without angina pectoris; I10 Essential (primary) hypertension; E78.00 Pure hypercholesterolemia, unspecified; E11.9 Type 2 diabetes mellitus without complications; I25.2 Old myocardial infarction; Z90.49 Acquired absence of other specified parts of digestive tract; Z95.5 Presence of coronary angioplasty implant and graft
CPT/HCPCS: 99284; 74177; 80053; 81003; 83690; 85025; Q9967

== ENCOUNTER 2024-09-05 16:45 | Emergency (ER) | payer MEDICARE, SELFPAY ==
[2024-09-05] VITALS (8 sets, daily range): BP systolic 150–170; BP diastolic 9–112; BMI 25.5
[2024-09-05 17:20] LABS: % Eosinophils 2.1 % (0-6); % Immature Granulocytes 0.3 % (0-0.5); % Lymphocytes 20.1 % (20.5-51.1); % Neutrophils 68.5 % (42.2-75.2); Absolute Basophils 0.1 10^3/uL (0-0.2); Absolute Eosinophils 0.2 10^3/uL (0-0.7); Absolute Lymphocytes 1.6 10^3/uL (1.2-3.4); Absolute Monocytes 0.6 10^3/uL (0.1-0.6); Absolute Neutrophils 5.3 10^3/uL (1.4-6.5); Hematocrit 40.2 % (39.0-52.0); Hemoglobin 13.5 g/dL (13.0-18.0); Mean Corp Hgb Conc. 33.6 g/dL (33.0-37.0); Mean Corpuscular Hgb 28.6 pg (27.0-31.0); Mean Corpuscular Volume 85.2 fL (80.0-94.0); Mean Platelet Volume 8.6 fL (7.4-10.4); Nucleated Red Blood Cells % 0 % (-); Platelet Count 275 10^3/uL (130-400); Red Blood Cell Count 4.72 10^6/uL (4.70-6.10); Red Cell Dist. Width 13.2 % (11.5-14.5); White Blood Cell Count 7.7 10^3/uL (4.8-10.8)
[2024-09-05 17:32] LABS: APTT 29.4 Sec (23.4-35.0); INR 1.08; PT 14.3 Sec (11.4-14.6)
[2024-09-05 17:41] LABS: ALT (SGPT) 12 U/L (0-50); AST (SGOT) 18 U/L (17-59); Albumin 4.4 g/dl (3.5-5.0); Alkaline Phosphatase 89 U/L (38-126); Blood Urea Nitrogen 19 mg/dl (9-20); Calcium 9.7 mg/dl (8.4-10.2); Carbon Dioxide 23 mmol/L (22-30); Chloride 103 mmol/L (98-107); Glucose 107 mg/dl (70-99); Potassium 4.6 mmol/L (3.5-5.1); Sodium 135 mmol/L (135-145); Total Bilirubin 1.5 mg/dl (0.2-1.3); eGFR > 60.00
--- NOTE | 2024-09-05 20:18 | ED.GENMED ---
History of Present Illness
General
Chief Complaint: Rectal Bleeding
Time Seen by Provider: 09/05/24 19:42
History of Present Illness
History of Present Illness:
84-year-old male with prior history of CVA, peptic ulcer disease with bleeding ulcer, status post partial gastrectomy, hypertension presenting to the emergency department for concern of rectal bleeding. Patient reports to the past several weeks he
has noticed that his stools have been very dark. Also notes upper abdominal discomfort. Reports that his upper GI bleed was many years ago, has not had any issues since. Denies any vomiting. Denies any extensive alcohol usage. Denies chest pain
or difficulty breathing. Denies any fevers. Also reports surgical history of partial colon resection colon cancer, as well as cholecystectomy. Denies additional acute medical complaints
Past History
Past History
ED Past Medical History: Arrthythmia (Atrial fib), CAD, HTN, Hypercholesterolemia, NIDDM and [place]
ED Past Surgical History: Appendectomy, Bowel resection (Subtotal gastrectomy), Cardiac (Stents X 2), Cholecystectomy and Other
Social History
Tobacco: Non-smoker
Alcohol: Former
Drug: None
Personal:
Living: with family
Employment: Retired
Family History
Family History: Other (Noncontributory)
Phy Exam
Physical Exam
Physical Exam:
General: Well-appearing, no clinical signs of dehydration, nontoxic and in no acute distress
HEENT: protecting airway
Neck: appears supple
CV: Normal heart rate, regular rhythm
Resp: No accessory muscle use, no increased work of breathing, lungs clear to auscultation bilaterally
Abd: Soft and non-distended, mild tenderness to the upper abdomen without rebound or guarding
Extremities: No deformities, no swelling
Neuro: alert, no focal neurologic deficit
: deferred
Rectal: Hemoccult negative brown stool
Psych: Normal affect
Skin: Intact
Course
Orders/Labs/Results
Orders:
Orders
09/05/24 17:06
Complete Blood Count/With Diff Urgent
Comprehensive Metabolic Panel Urgent
PT/INR [Prothrombin Time] Urgent
Is patient on Coumadin/Warfarin?: No
Comment: xarelto
PTT Urgent
09/05/24 19:53
CT Abd/pelvis W Iv Cont Urgent
Comment:
Reason For Exam: upper abdominal pain, hx bleeding ulcers
Abnormal Lab Results
09/05/24
17:06
Lymphocytes % 20.1 L %
(20.5-51.1)
Glucose 107 H mg/dl
(70-99)
Total Bilirubin 1.5 H mg/dl
(0.2-1.3)
09/05/24 17:06
09/05/24 17:06
Vital Signs
Initial and Last Documented VS:
Initial Vital Signs
Temp Pulse Resp BP Pulse Ox
98.2 F 93 16 162/104 97
09/05/24 16:52 09/05/24 16:52 09/05/24 16:52 09/05/24 16:52 09/05/24 16:52
Last Documented Vital Signs
Temp Pulse Resp BP Pulse Ox
97.6 F 68 17 166/112 100
09/05/24 18:26 09/05/24 21:36 09/05/24 21:36 09/05/24 23:05 09/05/24 23:06
MDM/Problems Addressed
MDM/Problems Addressed:
84-year-old male with prior history of CVA, peptic ulcer disease with bleeding ulcer, status post partial gastrectomy, hypertension presenting to the emergency department for concern of dark stools and rectal bleeding with upper abdominal pain.
Vital signs on arrival are significant for mild hypertension.
On exam, patient is resting comfortably, no acute distress or discomfort. Abdominal exam relatively benign with minimal tenderness to the upper abdomen. Symptoms concerning for peptic ulcer disease, however on rectal exam, Hemoccult negative brown
stool. In addition, no hemodynamic instability. Labs obtained prior to my assessment, normal hemoglobin without concern for any serious GI hemorrhage. Given duration of symptoms, will obtain CT abdomen and pelvis to ensure no additional pathology
contributing to patient's symptoms
22:40 - CT without acute pathology. Patient otherwise remains hemodynamically stable. At this time feel stable for discharge with close outpatient primary care follow-up. Also recommending outpatient GI follow-up. Will provide information. Will
start patient on Pepcid. Return precautions discussed and patient verbalized understanding
*Pulse Oximetry
SaO2: 99
Oxygen Mode of Delivery: Room air
Patient hypoxic: no
*Critical Care Note
Total Time (30-74mins, 75-104mins- exclusive of procedures): Not Applicable
ED Attending Note
-
Portions of this chart may have been created with voice recognition software.� Occasional wrong word or��sound alike� substitutions may have occurred due to the inherent limitations of voice recognition software.
Discharge Plan
Departure
Patient Disposition: Home (Routine Discharge)
Date of Disposition: 09/05/24
Time of Disposition: 22:44
Patient with high blood pressure during this ER visit?: Yes
Condition: Good
Discharge Problem:
Abdominal pain, Peptic ulcer disease
Instructions: Bloody Stools, Adult (DC), BLOOD PRESSURE
Prescriptions:
New
famotidine [Pepcid] 20 mg tablet
20 mg PO DAILY Qty: 30 0RF
No Action
escitalopram oxalate [Lexapro] 10 mg Tablet
10 mg PO DAILY
isosorbide mononitrate 30 mg Tablet Extended Release 24 Hr
30 mg PO DAILY Qty: 30 11RF
Xarelto 20 mg Tablet
20 mg PO QPM Qty: 30 0RF
pantoprazole [Protonix] 40 mg tablet,delayed release (DR/EC)
40 mg PO DAILY Qty: 30 0RF
rosuvastatin 10 mg Tablet
10 mg PO DAILY Qty: 30 0RF
multivitamin [Daily Multi-Vitamin] Tablet
1 tab PO DAILY Qty: 30 0RF
trazodone 100 mg tablet
100 mg PO HS Qty: 30 0RF
tamsulosin 0.4 mg Capsule
0.4 mg PO DAILY Qty: 30 0RF
melatonin 3 mg Tablet
6 mg PO HS Qty: 60 0RF
lorazepam 0.5 mg Tablet
0.5 mg PO BID@0700,2000 Qty: 60 0RF
nitroglycerin 0.4 mg Tablet, Sublingual
0.4 mg sublingual [id number] PRN (Reason: CHEST PAIN) Qty: 10 0RF
metoprolol succinate [Toprol XL] 50 mg tablet extended release 24 hr
50 mg PO Q12H Qty: 60 0RF
Referrals:
Jose Francisco Ferguson MD [Active, Gastroenterology]
Kristal Storm DO [Family Provider, Family Practice]
Activity Restrictions/Additional Instructions:
You were seen in the emergency department for upper abdominal pain and concern for blood in your stool
You were found to have reassuring laboratory analysis and CT imaging of your abdomen. Your stool today did not show any signs of blood. Given your history, we recommend that you follow-up with a GI doctor for possible endoscopy
Please follow-up closely with your primary care physician.
Return to the emergency department for any worsening of your symptoms, or any development of chest pain, difficulty breathing, abdominal pain with persistent vomiting and inability to tolerate food or liquid by mouth (concern for dehydration),
weakness, headache or confusion, fever greater than 100.4, or any additional symptoms that are concerning to you.
Thank you for choosing [facility].
Interventions
Interventions:
*Risk Screen - Suicide Last Done: 09/05/24 16:53
*General Assessment Last Done: 09/05/24 18:26
*Neglect/Abuse Screening Last Done: 09/05/24 16:53
*ED- Fall Risk Assessment Last Done: 09/05/24 18:26
*ED COVID-19 Vaccine History Last Done: 09/05/24 18:26
*Nursing Disposition Last Done: 09/05/24 23:16
LA-Gypzym-Dymyxhfaxf Assessment Last Done: 09/05/24 18:26
ED- Cardiac Assessment Last Done: 09/05/24 18:26
ED- Pulmonary Assessment Last Done: 09/05/24 18:26
Discharge Date and Time
Discharge Date/Time: 09/05/24 23:21
Print Language: KYRGYZ
== END 2024-09-05 23:21 | disposition home or self-care (01) ==
LOC: EMR 16:45
PROVIDERS: Emergency Medicine; EMERGENCY PHYSICIAN Student in an Organized Health Care Education/Training Program; FAMILY PHYSICIAN Family Medicine
DX: K27.9 Peptic ulcer, site unspecified, unspecified as acute or chronic, without hemorrhage or perforation (principal); R10.10 Upper abdominal pain, unspecified; I10 Essential (primary) hypertension
CPT/HCPCS: 99285; 74177; 80053; 85025; 85610; 85730; Q9967

== ENCOUNTER 2024-10-27 16:42 | Inpatient (IN) | payer MEDICARE, SELFPAY ==
[2024-10-27] VITALS (10 sets, daily range): BP systolic 139–170; BP diastolic 78–118; BMI 24.5; BMI 24.0
[2024-10-27 13:25] LABS: Hematocrit 42.1 % (39.0-52.0); Hemoglobin 13.9 g/dL (13.0-18.0); Mean Corp Hgb Conc. 33.0 g/dL (33.0-37.0); Mean Corpuscular Volume 83.4 fL (80.0-94.0); Nucleated Red Blood Cells % 0 % (-); Platelet Count 226 10^3/uL (130-400); Red Cell Dist. Width 14.7 % (11.5-14.5)
[2024-10-27 13:42] LABS: ALT (SGPT) 14 U/L (0-50); AST (SGOT) 20 U/L (17-59); Albumin 4.1 g/dl (3.5-5.0); Alkaline Phosphatase 83 U/L (38-126); Blood Urea Nitrogen 20 mg/dl (9-20); Calcium 9.5 mg/dl (8.4-10.2); Carbon Dioxide 22 mmol/L (22-30); Chloride 108 mmol/L (98-107); Glucose 163 mg/dl (70-99); Potassium 3.9 mmol/L (3.5-5.1); Sodium 137 mmol/L (135-145); Total Protein 7.3 g/dl (6.3-8.2); eGFR > 60.00
[2024-10-27 14:05] LABS: Troponin I 0.122 ng/ml
--- NOTE | 2024-10-27 14:52 | PHANOTE ---
med rec note-patient said he stopped all his medication, but his son and was thinking about re starting.
patient filled 2022
lexapro 10mg daily
[id number] daily
protonix 40mg daily
xarelto 20mg qpm
crestor 10mg daily
flomax 0.4mg daily
trazodone 100mg hs
topril xl 50mg bid
--- NOTE | 2024-10-27 14:55 | EDRN ---
Dr. Palomino in to see pt.
--- NOTE | 2024-10-27 15:19 | ED.GENMED ---
History of Present Illness
General
Chief Complaint: Male Genito-Urinary Symptoms
Source: patient
Exam Limitations: none
Time Seen by Provider: 10/27/24 14:46
History of Present Illness
History of Present Illness:
Patient states he is here for ongoing urinary symptoms for months. He had no other history initially. He did state his other son had last week. The son that brought him in is not in the room at this time and we have no history from him. I
called the who stated he is a hypochondriac. And she is unsure why he is here or why her other son brought him in. There has been significant family stress with a son that last week however. On further testing with the patient after
knowing his troponin is indeterminate, he did state he has had some shortness of breath and chest tightness over the last week
Past History
Past History
ED Past Medical History: Arrthythmia (Atrial fib), CAD, HTN, Hypercholesterolemia, NIDDM and [place]
ED Past Surgical History: Appendectomy, Bowel resection (Subtotal gastrectomy), Cardiac (Stents X 2), Cholecystectomy and Other
Social History
Tobacco: Non-smoker
Alcohol: Former
Drug: None
Personal:
Living: with family
Employment: Retired
Family History
Family History: Other (Noncontributory)
Review of Systems
Review of Systems
All Other Systems: Not applicable
Constitutional: Denies fever
Respiratory: Reports no symptoms
Cardiac: Reports no symptoms
Phy Exam
Physical Exam
Physical Exam:
GENERAL: Alert and oriented in no apparent distress
EYE: Orbits normal.
NECK: Supple, no significant adenopathy.
ENT: Pharynx without erythema
CARDIAC: Irregular irregular. Mildly tachycardic
LUNGS: Clear breath sounds,normal
ABDOMEN: Soft, without focal tenderness or distention
NEUROLOGICAL: Alert and oriented , grossly non-focal
SKIN: Warm and dry, no rash or lesion, no discoloration, skin intact.
MUSCULOSKELETAL: No edema,no deformity.Good color
PSYCH: Normal and appropriate interaction.
Course
Orders/Labs/Results
Orders:
Orders
10/27/24 12:59
Electrocardiogram (*1) Urgent
Reason for Study: Tachycardia
10/27/24 13:00
EKG- Treatment ONCE
10/27/24 13:18
Complete Blood Count/With Diff Urgent
Comprehensive Metabolic Panel Urgent
Troponin I Urgent
10/27/24 15:02
CXR2 [CR Chest - 2 Views ] Urgent
Comment:
Reason For Exam: cp/sob
10/27/24 16:34
Admit/Transfer Patient As Directed
Co-Sign Provider:
Level of Care: Inpatient admission
Assign to:: Telemetry
Physician / Group: Hospitalist
Diagnosis: Chest pain
Reason for Telemetry: Medication for Arrhythmia
Date to Stop Telemetry: 10/29/24
Time to Stop Telemetry: 11:00
Reason for Hospitalization: .
Expected length of stay greater than two midnights?: Yes
ELOS- Estimated Length of Stay in days: 3
I certify the patient meets the requirements for IP care: Yes
PRN Pain Medication Management As Directed
May give lesser potent ordered pain med per pt: Yes
preference::
Protocol:: Medication orders for pain may be administered in a
manner that supports deferring to patient preference
when the pt is:
- Requesting an ordered lesser potent pain medication.
Least to most potent pain medications are defined
as: acetaminophen < NSAID < tramadol < opioids
(morphine, oxycodone, hydromorphone).
- Requesting a lesser dose of the same medication IF
ORDERED.
- Requesting a less intrusive route of administration
if both routes are prescribed by the provider (PO <
IV).
10/29/24 11:00
DC Protocol for Telemetry ONCE
Abnormal Lab Results
10/27/24
13:18
RDW 14.7 H %
(11.5-14.5)
Chloride 108 H mmol/L
(98-107)
Glucose 163 H mg/dl
(70-99)
Troponin I 0.122 H* ng/ml
10/27/24 13:18
10/27/24 13:18
Vital Signs
Initial and Last Documented VS:
Initial Vital Signs
Temp Pulse Resp BP Pulse Ox
97.6 F 132 18 170/118 98
10/27/24 12:51 10/27/24 12:51 10/27/24 12:51 10/27/24 12:51 10/27/24 12:51
Last Documented Vital Signs
Temp Pulse Resp BP Pulse Ox
97.6 F 86 15 154/97 98
10/27/24 12:51 10/27/24 18:00 10/27/24 18:00 10/27/24 18:00 10/27/24 18:00
*Radiology
Radiology exam reviewed: preliminary read by ED provider (Negative)
*Pulse Oximetry
SaO2: 98
Oxygen Mode of Delivery: Room air
Patient hypoxic: no
*EKG
Interpreted by ED Provider?: Yes
Interpretation: abnormal
Comparison EKG: changes noted
Heart Rate: 111
Rate: tachycardiac
Rhythm: a-fib
[place]: normal axis
Interval: normal interval
QRS Pattern: normal QRS
Ischemia: non-specific ST changes
*Critical Care Note
Total Time (30-74mins, 75-104mins- exclusive of procedures): Not Applicable
ED Attending Note
-
Portions of this chart may have been created with voice recognition software.� Occasional wrong word or��sound alike� substitutions may have occurred due to the inherent limitations of voice recognition software.
Discharge Plan
Departure
Patient Disposition: Admit
Date of Disposition: 10/27/24
Time of Disposition: 16:15
Presentation/result/management discussed w/ accepting MD/DO: Hospitalist
Discharge Problem:
Intermittent chest pain/short of breath, Atrial fibrillation , ndeterminant tropon
Interventions
Interventions:
*Risk Screen - Suicide Last Done: 10/27/24 16:25
*General Assessment Last Done: 10/27/24 16:25
*Neglect/Abuse Screening Last Done: 10/27/24 16:25
*ED- Fall Risk Assessment Last Done: 10/27/24 16:25
*ED COVID-19 Vaccine History Last Done: 10/27/24 16:25
ED-Male Genitourinary Assessment Last Done: 10/27/24 16:35
--- NOTE | 2024-10-27 16:34 | HPS.HSE ---
Family Physician
-
Family Physician: NOT KNOW UNKNOWN - PT DOES
Chief Complaint
-
Patient reported having urinary issues
History of Present Illness
84 years old male was brought in by his son for urinary problems. Patient is poor historian. History is taken from patient and his son, ER doctor.
In the triage, patient was noted to have rapid heart rate and troponin with EKG were done. Patient was noted to have uncontrolled atrial fibrillation mildly positive troponin. ER doctor asked the patient specifically if he was having chest pain,
patient reported (yeah I did on and off and last a few days).
Apparently, patient was recently attending his son's . His son of heart attack in [place].
Patient has history of noncompliance to his medications and son was not sure if he was taking them regularly. Patient denies chest pain or discomfort in the ER. Patient was only concerned about his urinary issue but he said he went to the bathroom
and now he is not having problems.
Medical History
Past Medical History
Past Medical History: Reports Other (Permanent atrial fibrillation, thrombophilia, diabetes, hypertension, central, vertigo, depression/anxiety, hyperlipidemia, gait dysfunction, BPH with hematuria, subarachnoid hemorrhage)
Past Surgical History: Reports Other (No recent major surgery)
Social History
Tobacco: Non-smoker
Alcohol: Occasional
Drug: None
Personal:
Living: With Family
Employment: Retired
Family History
Family History: Early CAD
Allergies / Home Medications
Allergies reflects when Allergies were last updated in [employer].
Home Medications with original date entered in [employer]
Allergy/Medication List:
Allergies
Allergy/AdvReac Type Severity Reaction Status Date / Time
atorvastatin Allergy gi problems Verified 05/12/24 10:40
Home Medications
Per OP records:
Nitroglycerin 0.4 MG as directed -
Multivitamin - 1 tablet Once a Day
Pantoprazole Sodium 40 MG
Isosorbide Mononitrate ER 30 MG
Metoprolol Succinate ER 50 MG TAKE 1 TABLET BY MOUTH TWICE A DAY for 90 Active
Tylenol
Rosuvastatin Calcium 10 MG 1 tablet Orally Once a day
Famotidine 20 MG TAKE ONE TABLET BY MOUTH ONE TIME DAILY
Tamsulosin HCl 0.4 MG 1 capsule Orally Once a day
Escitalopram Oxalate 10 MG 1 tablet Orally Once a day
Mirtazapine 15 MG 1 tablet at bedtime Orally Once a day
traZODone HCl 100 MG 1 tablet at bedtime Orally Once a day
Review of Systems
-
History Source: Patient
A 12 point ROS was completed and negative except as noted: Yes
Constitutional: Denies Fever or Chills
EENT: Denies Sore Throat
Respiratory: Denies Cough or Trouble Breathing
Cardiac: Denies Chest Pain
Abdomen/GI: Denies Abdominal Pain, Nausea, Diarrhea or Constipated
: Reports Difficulty Voiding
Musculoskeletal: Denies Edema
Skin: Denies Rash
Neurological: Denies Numbness
Endocrine: Denies Temp Intolerance
Hematologic/Lymphatic: Denies Bruising
Psych: Denies Panic Disorder
Physical Exam
Vital Signs
Vital Signs
Temp Pulse Resp BP Pulse Ox
97.6 F 89 17 152/91 98
10/27/24 12:51 10/27/24 15:30 10/27/24 15:30 10/27/24 15:00 10/27/24 16:24
Physical Exam
General: Comfortable, Conversant and Appears Chronically Ill
HEENT: Moist mucous membranes and Atraumatic
Respiratory: Clear
Cardiac: S1/S2, Irregular Rhythm and Murmur
GI: Soft, Non Tender, Non Distended and Normal Bowel Sounds
Genito-urinary: No costovertebral tender; No V[place]
Musculoskeletal: No Clubbing, No Cyanosis and No Edema
Skin: Warm and Dry
Neuro: Awake, Alert and Oriented (to self and surroundings, forgetful. He followed commands. )
Psych: Calm; No Agitated
Laboratory Results
-
10/27/24 13:18
10/27/24 13:18
Laboratory Results
Total Bilirubin 1.0 mg/dl (0.2-1.3) 10/27/24 13:18
AST 20 U/L (17-59) 10/27/24 13:18
ALT 14 U/L (0-50) 10/27/24 13:18
Alkaline Phosphatase 83 U/L (38-126) 10/27/24 13:18
Troponin I 0.122 ng/ml H* 10/27/24 13:18
Impression/Plan
-
84 years old male presented with history of urinary problems, was found to have rapid atrial fibrillation and mildly positive troponin
#Permanent atrial fibrillation with rapid ventricular response
Admit the patient to telemetry
Currently heart rate around [address] patient back on Toprol XL, will increase to twice a day as blood pressure tolerate
Will continue with Xarelto
# Mildly positive troponin.
EKG showing nonspecific changes.
Currently he does not have active chest pain.
Son who brought the patient did not report chest pain history
Will trend troponin
Order echo
Repeat EKG in a.m. or as needed
Will give aspirin therapy
Will consult cardiology, primary materials planning manager is Dr. Perry.
# History of urinary difficulty
Patient reports that he was able to void in the ER and felt better
Patient has history of BPH
Continue Flomax
Will order bladder scan protocol
# History of anxiety/depression
Will resume his home medication including trazodone and Lexapro, will try to verify doses and medications.
# History of vertigo/M�ni�re's disease
#History of iron deficiency anemia
#History of hyperlipidemia
#History of hypertension
# History of subarachnoid hemorrhage/ CVA
Patient uses cane
# History of cognitive impairment
# CODE STATUS, DNR, confirmed with son
Total time spent to see the patient, examine the patient, review data and lab results, discuss treatment plan with patient, ER doctor, nursing staff around 75 minutes
--- NOTE | 2024-10-27 16:46 | EDRN ---
Dr. Bryant in room w/ pt at this time.
[2024-10-27] MEDS: LOW STRENGTH ASPIRIN 324 MG PO (17:36)
[2024-10-27 19:34] LABS: Troponin I 0.203 ng/ml
--- NOTE | 2024-10-27 20:00 | TRANSFER ---
Pt arrived from ED by stretcher. Assist x 1 with cane. VSS. Bladder scanned per physician order with no residual urine noted. Call cao within reach.
[2024-10-27] MEDS: TOPROL XL 50 MG PO (21:43)
[2024-10-27] MEDS: DESYREL 100 MG PO (21:44)
[2024-10-27] MEDS: XARELTO 20 MG PO (21:44)
[2024-10-28 01:30] LABS: Troponin I 0.224 ng/ml
--- NOTE | 2024-10-28 02:10 | PTCARENOTE ---
Troponin resulted at 0.224. House provider TT.
--- NOTE | 2024-10-28 06:08 | PTCARENOTE ---
Weight was not obtained because patient refused
[2024-10-28 07:28] LABS: Troponin I 0.178 ng/ml
[2024-10-28 07:52] VITALS: BP 142/85
--- NOTE | 2024-10-28 09:03 | CON.CAR ---
Addendum entered and electronically signed by Cr Truong MD 10/28/24 12:27:
I saw and examined the patient.
The Line Mechanic's note was reviewed and I agree with the note.
Comment:
GEN: No distress, awake, Ox3
HEENT: supple, anicteric, mmm
LUNGS: CTA, no wheezes/rales
CV: Irreg, S1/S2, 1/6 syst LSB, no murmur
ABD: soft, BS+, NT/ND
EXT: No edema
NEURO: Gross non-focal
SKIN: No rash
Plan:
84-year-old male with past medical history of coronary disease status post CABG, permanent A-fib, hypertension, hyperlipidemia, subarachnoid hemorrhage presents with rapid A-fib and urinary retention. He admits to stopping his medications for
several days due to abdominal pains and presented with rapid atrial fibrillation. He has known permanent atrial fibrillation. He stopped his Toprol and Xarelto. He denies any chest pains. He was found to have a troponin of 0.1-0.2.
He presents with poorly controlled A-fib in the setting of noncompliance. Restart Toprol 50 mg p.o. twice daily and restart Xarelto. I had a lengthy discussion regarding importance of compliance.
I suspect his abnormal troponin is a nonischemic myocardial injury. Will start with checking echocardiogram. He denies any chest pains.
Restart Toprol, Imdur 30 mg daily, Crestor, and Xarelto.
If echo was overall unremarkable would be okay for discharge.
Original Note:
Consultation
Consultation Request
Date/Time Consultation Requested: 10/27/2024
Date/Time Consultation Performed: 10/28/2024
Requesting Provider: Dr. Bryant
Performing Provider: Ceci Epperson PA-C for Dr. Truong
Reason for Consultation: Atrial fibrillation with rapid ventricular response
Medical History
-
History of Present Illness:
Patient is an 84-year-old male with complex past medical history including longstanding coronary disease s/p PCI and CABG, permanent atrial fibrillation, hypertension, hyperlipidemia, anxiety, subarachnoid hemorrhage 10/01/2021. He has a history of
noncompliance with warfarin in the past and so he was changed to Xarelto 05/2022. Patient was at a for a great niece who suddenly at the age of 24 and reported to his son he was not feeling well and was having difficulty urinating and
insisted on getting medical attention. In triage patient was noted to have rapid heart rate. EKG showed atrial fibrillation with rapid ventricular response with mild anterior lead ST depression. Noted to have elevated troponin which peaked at
0.224. Chest x-ray with no acute cardiopulmonary process. Patient was given aspirin in emergency department and given beta-lars. Cardiology being asked to see patient for atrial fibrillation with rapid ventricular response and abnormal
troponin. Per patient's son Jake patient has significant history of anxiety and has been under significant stress recently as one of his sons unexpectedly in [place] 2 weeks ago and they had to go out there for his . Then his great
niece unexpectedly at the age of 24 and yesterday was the . Son reports he denied having chest pain but did admit to me that he felt his heart was beating fast at times.
PMH:
CAD
s/p IWMI and PAD PCI 1996
s/p CABG in [place] in 2016
s/p OM PCI 2019
Permanent Afib
Chronic Xarelto OAC
h/o SAH managed at [facility] 10/01/21
HTN
Hyperlipidemia
Hypertension
Vertigo
Depression/anxiety
Gait dysfunction
BPH with hematuria
h/o of colon cancer with resection 2007
Medication noncompliance
Past Medical History
Past Medical History: Other (in HPI)
Past Surgical History: Bowel Resection (2007) and Cardiac (CABG in [place] 2016)
Social History
Tobacco: Non-Smoker
Alcohol: None
Drug: None
Personal:
Living: With Family
Family History
Family History: CAD (mother of [place], son at 63 of presumed cardiac event)
Allergies / Home Medications
Allergy/AdvReac Type Severity Reaction Status Date / Time
atorvastatin Allergy gi problems Verified 05/12/24 10:40
�Medication �Instructions �Recorded �Confirmed �Type
No Meds [No Current Medications] 10/27/24 10/27/24 History
Review of Systems
-
History Source: Patient, Family (Son Jake over the phone) and Coordinating Provider
Physical Exam
Vital Signs
Temp Pulse Resp BP Pulse Ox
97.9 F 69 16 142/85 97
10/28/24 07:52 10/28/24 07:52 10/28/24 07:52 10/28/24 07:52 10/28/24 07:52
GEN: No distress, awake, Oriented to self and place and pleasant
HEENT: supple, anicteric, mmm
LUNGS: CTA, no wheezes/rales
CV: Irregularly irregular, S1/S2, 1/6 syst murmur, no rub or gallop
ABD: soft, BS+, NT/ND
EXT: No edema, clubbing or cyanosis
NEURO: Poor/limited historian otherwise nonfocal
SKIN: No rash, warm, dry, pink
Lab Results
10/27/24 13:18
10/27/24 13:18
Troponin I 0.178 ng/ml H* 10/28/24 06:28
Impression / Plan
-
Primary Senior Client Advisor: Dr. Perry, last seen in 2022
Primary Care Physician: Dr. Kristal Storm
Impression:
Presented 10/27/2024 with urinary symptoms
Atrial fibrillation with rapid ventricular response
Abnormal troponin
CAD
s/p IWMI and PAD PCI 1996
s/p CABG in [place] in 2016
s/p OM PCI 2019
Permanent Afib
Chronic Xarelto OAC
h/o SAH managed at [facility] 10/01/21
HTN
Hyperlipidemia
Hypertension
Vertigo
Depression/anxiety
Gait dysfunction
BPH with hematuria
h/o of colon cancer with resection 2007
Medication noncompliance
Echo 08/06/22: EF 50-55%, normal regional wall motion, mild MR, mild peak/mean 16/10 mmHg and EVANGELINA 1.3 cm sq, mild aortic regurgitation
RADHA 06/23/14: EF 60%, mild MR, mild atherosclerotic in the descending aorta
Exercise nuclear stress test 05/17/2015: 6:00, 7 METS, 94% maximum predicted heart rate. Small minimally reversible defect in lateral segment and apical segment consistent with infarction with residual ischemia versus soft tissue attenuation.
Plan:
- Presented 10/27/2024 with urinary symptoms and found to be in atrial fibrillation with rapid ventricular response with abnormal troponin.
-Patient currently feeling well and is dressed laying in bed asking if he can go home.
-Patient has history of permanent atrial fibrillation. Previously on Toprol 50 mg twice a day as outpatient with good heart rate control. Unclear if patient has been compliant with taking outpatient medications as he reports to me he takes sometimes
-Per review of telemetry heart rates seem to have improved overnight now back on Toprol 50 mg twice a day
-Continue Xarelto to reduce risk of thromboembolic event. Discussed this is important medication to reduce risk of cardioembolic events.
-Abnormal troponin which peaked at 0.224. EKG showed atrial fibrillation with rapid ventricular response and mild ST abnormality which improved with better heart rate control. Patient has known history of coronary artery disease with prior
stenting and CABG. Currently denying chest pain but did admit to palpitations recently and admits to noncompliance with medication. Suspect elevated troponin is nonischemic myocardial injury secondary to atrial fibrillation with rapid ventricular
response
-Would check echocardiogram
- Resume outpatient medical therapy beta-lars, isosorbide, Xarelto and rosuvastatin.
-Patient initially presented with difficulty urinating but reports he is now not having any issues. Treatment per hospitalist. Resume Flomax
I did talk to patient's son Jake Gleason as well as Jake Jerome over the phone who helped provide history. I did reach out to patient's but [email or web address]
Patient may benefit from visiting nurse services upon discharge to help ensure compliance.
Await echocardiogram. If unremarkable could consider discharge to home with outpatient follow-up
Data Reviewed
-
EKG: Report Reviewed by me, Discussed with Physician, Discussed with Nurse, Discussed with Patient and Discussed with Family
Radiology: Report Reviewed by me, Discussed with Physician, Discussed with Nurse, Discussed with Patient and Discussed with Family
Labs: Labs Reviewed by me, Discussed with Physician, Discussed with Nurse, Discussed with Patient and Discussed with Family
Old Records: Reviewed
[2024-10-28] MEDS: FLOMAX 0.4 MG PO (09:12)
[2024-10-28] MEDS: IMDUR (EXTENDED RELEASE) 30 MG PO (09:12)
[2024-10-28] MEDS: TOPROL XL 50 MG PO ×2 (09:13→21:19)
[2024-10-28] MEDS: LEXAPRO 10 MG PO (09:16)
--- NOTE | 2024-10-28 09:22 | W.PN.HOSP.TC ---
Today's Communication/Plan
-
likey dc in am
Assessment / Plan
Assessment / Plan
Physical Exam
General: Comfortable, Conversant and Appears Chronically Ill
HEENT: Moist mucous membranes and Atraumatic
Respiratory: Clear
Cardiac: S1/S2, Irregular Rhythm and Murmur
GI: Soft, Non Tender, Non Distended and Normal Bowel Sounds
Genito-urinary: No costovertebral tender; No Vidal
Musculoskeletal: No Clubbing, No Cyanosis and No Edema
Skin: Warm and Dry
Neuro: Awake, Alert and Oriented (to self and surroundings, forgetful. He followed commands. )
Psych: Calm; No Agitated
84 years old male presented with history of urinary problems, was found to have rapid atrial fibrillation and mildly positive troponin
#Permanent atrial fibrillation with rapid ventricular response
Admit the patient to telemetry
Currently heart rate around [address] patient back on Toprol XL, will increase to twice a day as blood pressure tolerate
Will continue with Xarelto
# Mildly positive troponin,
Seen by cardiology: c/w non ischemic myocardial injury
EKG showing nonspecific changes.
Currently he does not have active chest pain.
Trend troponin came down
Order echo
Repeat EKG in a.m. or as needed
s/p aspirin therapy
Primary tubing drier is Dr. Perry.
# History of urinary difficulty
Patient reports that he was able to void in the ER and felt better
Patient has history of BPH
Continue Flomax
No retention on bladder scan
# History of anxiety/depression
Will resume his home medication including trazodone and Lexapro, will try to verify doses and medications.
# History of vertigo/M�ni�re's disease
#History of iron deficiency anemia
#History of hyperlipidemia
#History of hypertension
# History of subarachnoid hemorrhage/ CVA
Patient uses cane
# History of cognitive impairment
# CODE STATUS, DNR, confirmed with son
Total time spent to see the patient, examine the patient, review data and lab results, discuss treatment plan with patient, nursing staff around 55 minutes
Anticipated Discharge: Within 24 hours
Subjective/Interval History
-
Date of Service: October 28, 2024
No chest pain
No sob
No retention, able to void
Objective Data
-
Vital Signs:
Vital Signs
Temp Pulse Resp BP Pulse Ox
97.9 F 69 16 142/85 97
10/28/24 07:52 10/28/24 07:52 10/28/24 07:52 10/28/24 07:52 10/28/24 07:52
I&O
10/27/24 10/28/24 10/29/24
06:59 06:59 06:59
Intake Total 480 / 480
Balance 480 / 480
[2024-10-28 11:18] VITALS: BP 130/71
--- NOTE | 2024-10-28 13:32 | CM ---
Alert awake oriented patient who lives alone in an apartment with 16 steps to enter. He is assisted in all ADLs by his . He uses a cane Offered VN he declined need.Advanced directive pkg given.
No VN/ Taylor hx
Pharmacy [facility]
PCP [facility] Andres Nye
PLAN Home with needs
[2024-10-28 13:57] VITALS: BMI 24.0
[2024-10-28 14:33] VITALS: BP 109/71; PULSE 87
[2024-10-28 15:29] VITALS: BP 114/76
[2024-10-28] MEDS: ATIVAN 0.5 MG PO (16:26)
[2024-10-28] MEDS: CRESTOR 10 MG PO (17:18)
[2024-10-28] MEDS: XARELTO 20 MG PO (17:18)
[2024-10-28 19:00] VITALS: BP 99/56
[2024-10-28] MEDS: DESYREL 100 MG PO (21:19)
[2024-10-28 23:00] VITALS: BP 103/47
--- NOTE | 2024-10-29 06:33 | PTCARENOTE ---
Weight was not obtained for patient because he refused. Will pass on to day shift.
[2024-10-29] MEDS: TOPROL XL 50 MG PO (07:44)
[2024-10-29] MEDS: FLOMAX 0.4 MG PO (07:44)
[2024-10-29] MEDS: LEXAPRO 10 MG PO (07:44)
[2024-10-29] MEDS: IMDUR (EXTENDED RELEASE) 30 MG PO (07:51)
[2024-10-29 07:53] VITALS: BP 127/81
--- NOTE | 2024-10-29 08:28 | W.PN.UPDATE ---
Update Note
Progress Note Update
Pt refused echo and remains stable from cardiac standpoint.
HR and bp stable.
Compliance with meds has been reviewed.
His meds have been resumed.
Will schedule echo for outpt
Will arrange outpt cardiac follow up as he has been lost to follow up.
Discussed with primary service and nursing.
--- NOTE | 2024-10-29 10:15 | W.PN.HOSP.TC ---
Today's Communication/Plan
-
dc if ok with cardiology
Assessment / Plan
Assessment / Plan
Physical Exam
General: Comfortable, Conversant and Appears Chronically Ill
HEENT: Moist mucous membranes and Atraumatic
Respiratory: Clear
Cardiac: S1/S2, Irregular Rhythm and Murmur
GI: Soft, Non Tender, Non Distended and Normal Bowel Sounds
Genito-urinary: No costovertebral tender; No Vidal
Musculoskeletal: No Clubbing, No Cyanosis and No Edema
Skin: Warm and Dry
Neuro: Awake, Alert and Oriented (to self and surroundings, forgetful. He followed commands. )
Psych: Calm; No Agitated
84 years old male presented with history of urinary problems, was found to have rapid atrial fibrillation and mildly positive troponin
#Permanent atrial fibrillation with rapid ventricular response
Well controlled
Suspect he was not taking his medications
Counseled to be compliant c/w Xarelto
# Mildly positive troponin,
Seen by cardiology: c/w non ischemic myocardial injury
EKG showing nonspecific changes.
Currently he does not have active chest pain.
Trend troponin came down
Ordered echo but declined to do it
Repeat EKG, no changes
Given aspirin therapy , I d/w Dr Balderas, no need to continue with aspirin on discharge.
Primary mink rancher is Dr. Perry. Advised to follow in the office.
# History of urinary difficulty
Patient reports that he was able to void in the hospital.
Patient has history of BPH
Continue Flomax
No retention on bladder scan
# History of anxiety/depression
Resumed his home medication including trazodone and Lexapro,
# History of vertigo/M�ni�re's disease
#History of iron deficiency anemia
#History of hyperlipidemia
#History of hypertension
# History of subarachnoid hemorrhage/ CVA
Patient uses cane
# History of cognitive impairment
# CODE STATUS, DNR, confirmed with son
Total discharge time spent to see the patient, examine the patient, review data and lab results, discuss discharge plan with patient, mink rancher, nursing staff around 65 minutes
Anticipated Discharge: Today
Subjective/Interval History
-
Date of Service: October 29, 2024
No chest pain
Objective Data
-
Vital Signs:
Vital Signs
Temp Pulse Resp BP Pulse Ox
98.4 F 65 17 127/81 98
10/29/24 07:53 10/29/24 07:53 10/29/24 07:53 10/29/24 07:53 10/29/24 07:53
I&O
10/28/24 10/29/24 10/30/24
06:59 06:59 06:59
Intake Total 810 / 810
Balance 810 / 810
--- NOTE | 2024-10-29 14:48 | CM ---
Addendum entered by Dorita Mayorga 10/29/24 15:13:
cm consult completed for vn-patient declines
Original Note:
Patient seen at bedside
discharge today
IMM explained & signed. in chart
offered vn-declines
lives with
PLAN: Home, No needs
son to transport
[2024-10-29 15:36] VITALS: BP 126/75
--- NOTE | 2024-10-29 16:19 | W.DCSUMMARY ---
Discharge Summary
Discharge Data
Date of Admission: 10/27/24
Date of Discharge: 10/29/24
-
Pending Results: No
Hospital Course
84 years old male with past medical history of coronary disease status post CABG, permanent A-fib, hypertension, hyperlipidemia, subarachnoid hemorrhage presented with rapid A-fib and urinary difficulty. He admitted to stopping his medications
for several days due to abdominal pains. He was found to have rapid atrial fibrillation. He has known permanent atrial fibrillation. He stopped his Toprol and Xarelto. He denied any chest pains. He was found to have a troponin of 0.122 and
peaked tat 0.224 then came down to 0.178. He was placed on Toprol 50 mg p.o. twice daily and Xarelto. Patient was evaluated by road cleaner. Abnormal troponin was felt to be nonischemic myocardial injury. Hand Shaper recommended echocardiogram
but patient declined the test. Patient remained hemodynamically stable. Heart rate was well-controlled. He did not have cardiac arrhythmias or chest pains. He was evaluated by physical therapy and recommended home health services. Patient did
not want home services. Patient was discharged in a stable condition.
Discharge Plan
-
Patient Disposition: Home with Home Care
Discharge Diagnosis/Procedures: Positive troponin
You were seen by road cleaner. Recommended to continue Toprol, Imdur 30 mg daily, Crestor, and Xarelto.
You will need to follow-up with road cleaner in the office.
Diet: As tolerated
Referrals:
Amrik Perry MD [Active, Cardiology] - in one to two weeks
UNKNOWN - PT DOES,NOT KNOW [Family Provider]
Prescriptions:
New
metoprolol succinate 50 mg Tablet Extended Release 24 Hr
50 mg PO BID Qty: 1 0RF
isosorbide mononitrate 30 mg Tablet Extended Release 24 Hr
30 mg PO DAILY Qty: 1 0RF
tamsulosin 0.4 mg Capsule
0.4 mg PO DAILY Qty: 1 0RF
trazodone 100 mg Tablet
100 mg PO HS Qty: 1 0RF
escitalopram oxalate 10 mg Tablet
10 mg PO DAILY Qty: 1 0RF
rosuvastatin 10 mg Tablet
10 mg PO QPM Qty: 1 0RF
rivaroxaban [Xarelto] 20 mg Tablet
20 mg PO QPM Qty: 1 0RF
Discharge Orders:
Discharge Patient (As Directed); Ordered 10/29/24
Ordered By: Mynor Bryant
Discharge Date and Time
Discharge Date/Time: 10/29/24 16:34
Print Language: MONEGASQUE
== END 2024-10-29 16:34 | disposition home or self-care (01) | DRG 309 ==
LOC: 3 WEST ACU 16:42
PROVIDERS: Emergency Medicine; ADMITTING PHYSICIAN Internal Medicine; EMERGENCY PHYSICIAN Emergency Medicine; OTHER PHYSICIAN Internal Medicine Cardiovascular Disease
DX: I48.21 Permanent atrial fibrillation (principal); D68.59 Other primary thrombophilia; I5A Non-ischemic myocardial injury (non-traumatic); E11.9 Type 2 diabetes mellitus without complications; E78.00 Pure hypercholesterolemia, unspecified; I10 Essential (primary) hypertension; I25.10 Atherosclerotic heart disease of native coronary artery without angina pectoris; N40.1 Benign prostatic hyperplasia with lower urinary tract symptoms; R33.8 Other retention of urine; F32.A Depression, unspecified; F41.9 Anxiety disorder, unspecified; R26.9 Unspecified abnormalities of gait and mobility; D50.9 Iron deficiency anemia, unspecified; R41.89 Other symptoms and signs involving cognitive functions and awareness; T44.7X6A Underdosing of beta-adrenoreceptor antagonists, initial encounter; T45.516A Underdosing of anticoagulants, initial encounter; Z91.128 Patient's intentional underdosing of medication regimen for other reason; Y92.009 Unspecified place in unspecified non-institutional (private) residence as the place of occurrence of the external cause; Z66 Do not resuscitate; Z63.4 Disappearance and death of family member; I25.2 Old myocardial infarction; Z95.5 Presence of coronary angioplasty implant and graft; Z90.49 Acquired absence of other specified parts of digestive tract; Z91.148 Patient's other noncompliance with medication regimen for other reason; Z88.8 Allergy status to other drugs, medicaments and biological substances; Z86.73 Personal history of transient ischemic attack (TIA), and cerebral infarction without residual deficits; Z95.1 Presence of aortocoronary bypass graft; Z79.01 Long term (current) use of anticoagulants; Z85.038 Personal history of other malignant neoplasm of large intestine; Z82.49 Family history of ischemic heart disease and other diseases of the circulatory system
CPT/HCPCS: 51798; 71046; 80053; 84484; 85025; 93005; 97116; 97162; 97166; 99285

== ENCOUNTER 2024-12-20 05:42 | Inpatient (IN) | payer MEDICARE, SELFPAY ==
[2024-12-20] VITALS (13 sets, daily range): BP systolic 102–160; BP diastolic 62–111; PULSE 63; O2SAT 96; BMI 23.4
--- NOTE | 2024-12-20 03:42 | ED.CVA ---
History of Present Illness
General
Chief Complaint: CVA/TIA Symptoms
Source: patient
Exam Limitations: none
Time Seen by Provider: 12/20/24 03:40
Onset of Stroke Symptoms
Onset of symptoms known: No
Time pt last seen normal is known: Yes
Date last time pt seen normal: 12/19/24
History of Present Illness
History of Present Illness:
See MDM
Past History
Past History
ED Past Medical History: Arrthythmia (Atrial fib), CAD, CVA, HTN, Hypercholesterolemia, NIDDM and [place]
ED Past Surgical History: Appendectomy, Bowel resection (Subtotal gastrectomy), Cardiac (Stents X 2), Cholecystectomy and Other
Social History
Tobacco: Non-smoker
Alcohol: Former
Drug: None
Personal:
Living: with family
Employment: Retired
Family History
Family History: Other (Noncontributory)
Phy Exam
Physical Exam
Physical Exam:
See MDM
Scores
NIH Stroke Score
Level of Consciousness: 0 - Alert
LOC Questions: 0-Answers both correctly
LOC Commands: 0-Performs both correctly
Best Horizontal Gaze: 0-Normal
Visual [place]: 0=Normal, no visual loss
Facial Palsy: 1=Minor paralysis
Motor - Right Arm: 0=No drift 10 seconds
Motor - Left Arm: 1=Drift < 10 seconds
Motor - Right Le-No drift 5 seconds
Motor - Left Le-No drift 5 seconds
Limb Ataxia: 0-Absent
Sensation: 0-Normal
Best Language: 0-No aphasia
Dysarthria: 1-Mild slurring
Extinction and Inattention: 0-No abnormality
NIH Total Score:: 3
Course
Orders/Labs/Results
Orders:
Orders
12/20/24 03:[address] BRAIN PERF STROKE ALERT Urgent
Comment:
Reason For Exam: left side weakness
CT HEAD STROKE ALERT W/o Cont Urgent
Comment:
Reason For Exam: left side weakness
CT HEAD/NECK ANG STROKE ALERT Urgent
Comment:
Reason For Exam: left side weakness
Cardiac Monitoring- Treatment ONCE
12/20/24 03:41
Electrocardiogram (*1) Stat
Reason for Study: Other
Other Reason for Exam: neuro symptoms
EKG- Treatment ONCE
12/20/24 03:44
Complete Blood Count/With Diff Urgent
Comprehensive Metabolic Panel Urgent
PTT Urgent
Prothrombin Time Urgent
Troponin I Urgent
12/20/24 04:24
Aspirin Chewable [Low Strength Aspirin] 324 mg PO NOW STA
Clopidogrel Bisulfate [Plavix] 300 mg PO NOW STA
Abnormal Lab Results
12/20/24 12/20/24
03:44 04:09
RBC 4.40 L 10^6/uL
(4.70-6.10)
Hgb 12.2 L g/dL
(13.0-18.0)
Hct 36.7 L %
(39.0-52.0)
RDW 15.9 H %
(11.5-14.5)
Chloride 109 H mmol/L
(98-107)
Glucose 139 H mg/dl
(70-99)
AST 15 L U/L
(17-59)
Albumin 3.4 L g/dl
(3.5-5.0)
POC Glucose 141 H mg/dl
(70-99)
12/20/24 03:44
12/20/24 03:44
Vital Signs
Initial and Last Documented VS:
Initial Vital Signs
Temp Pulse Resp BP Pulse Ox
97.8 F 83 17 149/88 98
12/20/24 03:40 12/20/24 03:40 12/20/24 03:40 12/20/24 03:40 12/20/24 03:40
Last Documented Vital Signs
Temp Pulse Resp BP Pulse Ox
97.8 F 77 18 157/92 97
12/20/24 03:40 12/20/24 04:15 12/20/24 04:15 12/20/24 04:06 12/20/24 04:15
MDM/Problems Addressed
Differential Diagnosis Includes:
Note:
CHIEF COMPLAINT(S)
Left-sided weakness.
HISTORY OF PRESENT ILLNESS
The patient is a 84-year-old male with a reported history of stroke, presenting with acute left-sided weakness. According to the patients recounting, he was feeling 'funny' around 10 PM the previous night but was otherwise normal. He went to bed at
7 PM. Upon waking at 3 AM to make coffee, which he describes as a routine activity, the patient felt weakness predominantly on his left side. It was noted that he sat down in a chair and subsequently fell off. Historically, the patient uses a cane
to assist with walking. The patients corroborates that he has had a stroke in past years which affected him similarly. The clinical examination noted possible left-sided facial droop, difficulty lifting the left arm, and weaker strength in the
left leg. It is tough to pinpoint last known normal on this patient. He gives a confusing story of it being 7 PM or possibly 10 PM. He is also unsure if he woke up with the symptoms.
Prior records indicate intracranial hemorrhage in 2021. Based on this, he is not a TNK candidate
Stroke alert was called by EMS prior to arrival. Per records, patient does have a history of A-fib. He is not on blood thinners anymore due to the intracranial hemorrhage. Given the history of A-fib, there is significant concern for ischemic CVA.
However, given his prior history, will obtain CT to rule out intracranial hemorrhage.
ADDITIONAL HISTORY OBTAINED FROM SOURCE OTHER THAN THE PATIENT
The patients confirmed that the patient had a history of a stroke some years ago, affecting his functional status. She also reported that the patient uses a cane regularly for ambulation.
CHRONIC MEDICAL CONDITIONS SIGNIFICANTLY AFFECTING CARE
The patient has a history of intracranial hemorrhage, indicating previous brain bleeding.
PHYSICAL EXAM
General: Alert, no acute distress. Appears confused
Skin: Warm, dry.
Head: Normocephalic, atraumatic
Neck: Appears supple, trachea midline.
Eyes, Ears, Nose, Mouth, and Throat: Moist mucous membranes
Cardiovascular: No signs of cyanosis
Respiratory: Respirations are non-labored.
Abdomen: Non-distended
Musculoskeletal: No deformities
Neurological: Left arm drift. No leg drift noted which is improved per EMS. Left facial droop. Mild dysarthria
Psychiatric: Cooperative, appropriate mood and affect.
PLAN
Considering the patients history of intracranial hemorrhage, the use of thrombolytic agents might be contraindicated at this time. Further neurological evaluation and imaging studies are recommended to assess for possible recurrence or new
cerebrovascular accident.
DIFFERENTIAL DIAGNOSIS
The Differential Diagnosis includes, in no particular order and is not limited to:
1. Cerebrovascular accident (Stroke)
2. Transient ischemic attack
3. Intracranial hemorrhage
4. Subdural hematoma
5. Brain tumor
6. Seizure
7. Metabolic encephalopathy
8. Vestibular disorder
9. Parkinsons disease
10. Medication side effects
12/20/24 - 04:22
Radiology identified a very peripheral clot in the posterior right M2, correlating with symptoms. The clots size and location might render it too small for intra-arterial therapy (IAT). A consultation with neurosurgery will be conducted to evaluate
potential intervention strategies.
12/20/24 - :29
Case discussed with Stroke Fellow at [facility], Dr. Carmichael. Based on the low NIHSS score and the very posterior and peripheral clot, the patient is not an IAT candidate. Initiate aspirin and Plavix loading, and proceed with admission.
SUMMARY OF ENCOUNTER
The patient, a [id number] male, presented to the emergency department with acute left-sided weakness and mild aphasia, indicating potential stroke symptoms. A CT scan was performed and was negative for intracranial hemorrhage. However, a CT
angiogram revealed a peripheral clot in the right M2 location. Due to the clots location and the patients low National Institutes of Health Stroke Scale (NIHSS) score, he is not a candidate for intra-arterial therapy (IAT). Additionally, the patient
cannot receive tenecteplase due to a history of intracranial hemorrhage.
[place] [facility] [place]
ASSESSMENT
The patients symptoms and imaging are consistent with a cerebrovascular accident. The peripheral clot noted in the right M2 correlates with his left-sided weakness and mild aphasia.
PLAN
Initiate treatment with aspirin and clopidogrel (Plavix) loading. Admission for further neurological evaluation and management.
MANAGEMENT OF THE PATIENTS CARE WAS DISCUSSED WITH
Consultation with Stroke Fellow Dr. Carmichael at [facility].
INDEPENDENT REVIEW OF LABS AND INTERPRETATION OF TESTS
- My independent review of CT imaging indicates no intracranial hemorrhage.
- My independent interpretation of CT angiogram shows a very peripheral clot in the right M2 area.
PATIENT EDUCATION AND COUNSELING
The patient and family were informed about the diagnosis of stroke and the limitations concerning thrombolytic therapy due to his medical history. The importance of monitoring neurological status in a hospital setting was emphasized.
MEDICATION RECONCILIATION
Aspirin and clopidogrel (Plavix) were initiated as part of the treatment plan.
MEDICAL DECISION MAKING
- Chronic conditions affecting care include a history of intracranial hemorrhage and a previous stroke.
- Differential Diagnosis considered: Cerebrovascular accident (Stroke), Transient ischemic attack, Intracranial hemorrhage, Subdural hematoma, Brain tumor, Seizure, Metabolic encephalopathy, Vestibular disorder, Parkinsons disease, Medication side
effects.
- Data:
Category 1
- My independent review and interpretation of CT and CT angiogram results.
Category 2
- Clinical information was corroborated by the patients regarding his history of stroke and use of a cane.
Category 3
- Discussion of management with Stroke Fellow Dr. Carmichael at [facility].
CRITICAL CARE TIME
The high probability of a clinically significant, sudden or life threatening deterioration of the Neurovascular system(s) required my full and direct attention, intervention and personal management. The aggregate critical care time was 33 minutes.
This time is in addition to time spent performing reported procedures but includes the following:
[x] Data Review and interpretation
[x] Patient assessment and monitoring of vital signs
[x] Documentation
[x] Medication orders and management
DIAGNOSIS
- Cerebrovascular accident (Stroke) due to a right M2 clot (ICD-10: I63.8).
*Pulse Oximetry
SaO2: 97
Oxygen Mode of Delivery: Room air
Patient hypoxic: no
*Critical Care Note
Total Time (30-74mins, 75-104mins- exclusive of procedures): 33 min
ED Attending Note
-
Portions of this chart may have been created with voice recognition software.� Occasional wrong word or��sound alike� substitutions may have occurred due to the inherent limitations of voice recognition software.
Discharge Plan
Departure
Patient Disposition: Admit
Date of Disposition: 12/20/24
Time of Disposition: 04:33
Admit to: Telemetry
Presentation/result/management discussed w/ accepting MD/DO: Hospitalist
Discharge Problem:
Acute CVA (cerebrovascular accident)
Prescriptions:
No Action
metoprolol succinate 50 mg Tablet Extended Release 24 Hr
50 mg PO BID Qty: 1 0RF
isosorbide mononitrate 30 mg Tablet Extended Release 24 Hr
30 mg PO DAILY Qty: 1 0RF
tamsulosin 0.4 mg Capsule
0.4 mg PO DAILY Qty: 1 0RF
trazodone 100 mg Tablet
100 mg PO HS Qty: 1 0RF
escitalopram oxalate 10 mg Tablet
10 mg PO DAILY Qty: 1 0RF
rosuvastatin 10 mg Tablet
10 mg PO QPM Qty: 1 0RF
rivaroxaban [Xarelto] 20 mg Tablet
20 mg PO QPM Qty: 1 0RF
Referrals:
UNKNOWN - PT DOES,NOT KNOW [Family Provider]
Interventions
Interventions:
*Risk Screen - Suicide Last Done: 12/20/24 03:40
*General Assessment Last Done: 12/20/24 03:40
*Neglect/Abuse Screening Last Done: 12/20/24 03:40
*ED- Fall Risk Assessment Last Done: 12/20/24 03:40
*ED Influenza Vaccine History Last Done: 12/20/24 03:40
ED- Pulmonary Assessment Last Done: 12/20/24 04:16
ED- Neurological Assessment Last Done: 12/20/24 04:07
ED- Cardiac Assessment Last Done: 12/20/24 04:07
ED Swallowing Screen Last Done: 12/20/24 04:16
Discharge Date and Time
Print Language: ANDORRAN
[2024-12-20 03:55] LABS: Hematocrit 36.7 % (39.0-52.0); Hemoglobin 12.2 g/dL (13.0-18.0); Mean Corp Hgb Conc. 33.2 g/dL (33.0-37.0); Mean Corpuscular Volume 83.4 fL (80.0-94.0); Nucleated Red Blood Cells % 0 % (-); Platelet Count 205 10^3/uL (130-400); Red Cell Dist. Width 15.9 % (11.5-14.5)
[2024-12-20 04:03] LABS: APTT 25.9 Sec (23.4-35.0); INR 1.11; PT 14.6 Sec (11.4-14.6)
[2024-12-20 04:11] LABS: Glucose - Point of Care 141 mg/dl (70-99)
[2024-12-20 04:17] LABS: ALT (SGPT) 11 U/L (0-50); AST (SGOT) 15 U/L (17-59); Albumin 3.4 g/dl (3.5-5.0); Alkaline Phosphatase 81 U/L (38-126); Blood Urea Nitrogen 19 mg/dl (9-20); Calcium 8.7 mg/dl (8.4-10.2); Carbon Dioxide 23 mmol/L (22-30); Chloride 109 mmol/L (98-107); Glucose 139 mg/dl (70-99); Potassium 3.7 mmol/L (3.5-5.1); Sodium 137 mmol/L (135-145); Total Protein 6.3 g/dl (6.3-8.2); eGFR > 60.00
[2024-12-20] MEDS: PLAVIX 300 MG PO (04:27)
[2024-12-20] MEDS: LOW STRENGTH ASPIRIN 324 MG PO (04:27)
[2024-12-20 04:30] LABS: Troponin I < 0.012 ng/ml
--- NOTE | 2024-12-20 04:54 | HPS.HSE ---
Family Physician
-
Family Physician: NOT KNOW UNKNOWN - PT DOES
Chief Complaint
-
Left-sided weakness
History of Present Illness
This is a 84-year-old male with past medical history significant CAD status post CABG, permanent atrial fibrillation peptic ulcer disease, history of prior subarachnoid hemorrhage presenting to the emergency department with stroke like symptoms.
Timing of symptoms is unclear. But patient reports that for the last 2 days he has not been feeling well. He reports nausea 1 episode of vomiting but no diarrhea. He has some abdominal cramps. He denies any fevers or chills. He denies urinary
symptoms. Due to his abdominal symptoms he decided to treat himself and he did take 7 doses of extra strength aspirin. He noted that when he woke up at around 3 AM today and tried to make coffee he became very weak. He said he fell out of his
chair. He became also very concerned because he was unable to call out his and he felt like his tongue was not moving. Ultimately started speaking again and he called 911. Initially did not realize that he had weakness in his left arm.
Patient reported that the son in November and he had to stop taking all his medications at that time except for he he is baby aspirin. He was started on rivaroxaban when he was diagnosed with the A-fib in October.
In the emergency department he was afebrile, blood pressure was 157/92 with a pulse of 77 and was satting 97% on room air. ECG shows atrial fibrillation at a rate of 81. CBC was unremarkable. Electrolyte BUN/creatinine were normal. CT of the
head shows no acute findings. CTA shows very very superficial clot to right M2. Patient not a candidate for IAT. He is prescribed Xarelto and has a prior history of subarachnoid hemorrhage. No TNK was given.
Medical History
Past Medical History
Past Medical History: Reports Other (Permanent atrial fibrillation, thrombophilia, diabetes, hypertension, central, vertigo, depression/anxiety, hyperlipidemia, gait dysfunction, BPH with hematuria, subarachnoid hemorrhage)
Past Surgical History: Reports Other (No recent major surgery)
Social History
Tobacco: Non-smoker
Alcohol: Occasional
Drug: None
Personal:
Living: With Family
Employment: Retired
Family History
Family History: Early CAD
Allergies / Home Medications
Allergies reflects when Allergies were last updated in [employer]
Home Medications with original date entered in [employer]
Allergy/Medication List:
Allergies
Allergy/AdvReac Type Severity Reaction Status Date / Time
atorvastatin Allergy gi problems Verified 12/20/24 03:45
Home Medications
escitalopram oxalate 10 mg tablet 10 mg PO DAILY #1 tab 10/29/24
isosorbide mononitrate 30 mg tablet,extended release 24 hr 30 mg PO DAILY #1 tab 10/29/24
metoprolol succinate 50 mg tablet,extended release 24 hr 50 mg PO BID #1 tab 10/29/24
rivaroxaban 20 mg tablet (Xarelto) 20 mg PO QPM #1 tab 10/29/24
rosuvastatin 10 mg tablet 10 mg PO QPM #1 tab 10/29/24
tamsulosin 0.4 mg capsule 0.4 mg PO DAILY #1 cap 10/29/24
trazodone 100 mg tablet 100 mg PO HS #1 tab 10/29/24
Review of Systems
-
Constitutional: Reports No Symptoms
EENT: Reports No Symptoms
Respiratory: Reports No Symptoms
Cardiac: Reports No Symptoms
Abdomen/GI: Reports No Symptoms
: Reports No Symptoms
Musculoskeletal: Reports No Symptoms
Skin: Reports No Symptoms
Neurological: Reports Weakness
Endocrine: Reports No Symptoms
Hematologic/Lymphatic: Reports No Symptoms
Psych: Reports No Symptoms
Physical Exam
Vital Signs
Vital Signs
Temp Pulse Resp BP Pulse Ox
97.8 F 77 18 157/92 97
12/20/24 03:40 12/20/24 04:15 12/20/24 04:15 12/20/24 04:06 12/20/24 04:36
Physical Exam
General: Well Developed, Well Nourished and No Apparent Distress
HEENT: NormoCephalic, Moist mucous membranes and Atraumatic
Respiratory: Clear
Cardiac: S1/S2 and Irregular Rhythm; No Murmur or Rub
GI: Soft, Non Tender, Non Distended and Normal Bowel Sounds; No Organomegaly
Rectal: Deferred by Provider
Musculoskeletal: No Clubbing, No Cyanosis and No Edema
Skin: No Rash
Neuro: AO x 3, No Sensory Deficits, Slurred Speech and Facial Droop; No No Motor Deficits (1 out of 5 weakness in the left upper extremity. Patient unable to lift the left arm at all. He is able to lift the left leg and he has about a 4 out of
strength there.)
Hematologic/Lymphatic: No Lymphadenopathy
Psych: Calm
Laboratory Results
-
12/20/24 03:44
12/20/24 03:44
Laboratory Results
PT 14.6 Sec (11.4-14.6) 12/20/24 03:44
INR 1.11 12/20/24 03:44
APTT 25.9 Sec (23.4-35.0) 12/20/24 03:44
Total Bilirubin 0.9 mg/dl (0.2-1.3) 12/20/24 03:44
AST 15 U/L (17-59) L 12/20/24 03:44
ALT 11 U/L (0-50) 12/20/24 03:44
Alkaline Phosphatase 81 U/L (38-126) 12/20/24 03:44
Troponin I < 0.012 ng/ml 12/20/24 03:44
Impression/Plan
-
IMPRESSION:
84-year-old with past medical history significant for CAD status post CABG, hypertension, hyperlipidemia, history of subarachnoid hemorrhage, history of peptic ulcer disease, recent diagnosis of pulmonary atrial fibrillation for which she was
started on anticoagulation with Xarelto. Patient self discontinued all his medications including his Xarelto in November. He now presents with weakness to the left upper extremity that is a 1 out of 5. He also has a mild slurring of speech. CTA
head shows nothing acute. CTA does show a superficial clot to the right M2. Patient not a IAT candidate per pain neuro. Also has a history of head bleed no poor candidate for TNK. He had taken 7 doses of extra strength aspirin in the last 2
days. Loaded with aspirin and Plavix in the ED. I suspect that this is not embolic stroke based on the clot finding on CTA as well as his recent history of atrial fibrillation and noncompliance with Xarelto.
PLAN:
Acute CVA -likely cardioembolic on the basis of atrial fibrillation and not anticoagulated
- admit to telemetry
- neurochecks q 4-6 hours
- SBP stable, permissive hypertension for now
- no evidence of chemorrhage on CT/CT angio
- suspect AFIB as etiology, loaded with ASA/Plavix in ED, if MRI w/o bleed, and w/o large acute infarct can switch to AC as soon as possible
- continue asa 81 for now
- mri in am, echo
- continue antihypertensives
- PT/OT/Speech
- Physiotherapy
- Neurology consult
DVT PPX - SCDs for now
Code status - DNR
[2024-12-20] MEDS: ATIVAN 0.5 MG PO (05:35)
[2024-12-20] MEDS: IMDUR (EXTENDED RELEASE) 30 MG PO (08:52)
[2024-12-20] MEDS: FLOMAX 0.4 MG PO (08:52)
[2024-12-20] MEDS: TOPROL XL 50 MG PO (08:52)
--- NOTE | 2024-12-20 11:32 | CARDSERVLU ---
Echocardiogram with [facility] completed after protocol screening completed. Allergies verified.
Patent IV site: Right median antecubital site clear
IV site flushed with 0.9% NaCl pre and post administration.
Diluted bolus method utilized to enhance visualization of ventricular castaneda.
Total volume given: __3__ mL
Patient tolerated all procedures well without complications.
--- NOTE | 2024-12-20 14:31 | W.PN.HOSP.TC ---
Today's Communication/Plan
-
stroke protocol
Assessment / Plan
Assessment / Plan
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
Acute CVA -likely cardioembolic on the basis of atrial fibrillation and not anticoagulated
MRI brain
Neurology consult
tele monitoring
Echo performed see above
permissive HTN
- no evidence of hemorrhage on CT/CT angio
- suspect AFIB as etiology, loaded with ASA/Plavix in ED, if MRI w/o bleed, and w/o large acute infarct can switch to AC as soon as possible
- continue asa 81 for now
- PT/OT/Speech
DVT PPX - SCDs for now
Code status - DNR
Anticipated Discharge: 24 - 48 hours
Subjective/Interval History
-
Date of Service: December 20, 2024
Patient states he feels well, denies any issues overnight. Still has right sided weakness
Objective Data
-
Labs:
Laboratory Results
12/20/24
03:44
WBC 6.1
Hgb 12.2 L
Hct 36.7 L
Plt Count 205
PT 14.6
INR 1.11
APTT 25.9
Sodium 137
Potassium 3.7
Chloride 109 H
Carbon Dioxide 23
BUN 19
Creatinine 0.8
Glucose 139 H
Calcium 8.7
Total Bilirubin 0.9
AST 15 L
ALT 11
Alkaline Phosphatase 81
Vital Signs:
Vital Signs
Temp Pulse Resp BP Pulse Ox
97.2 F 103 18 160/111 100
12/20/24 07:40 12/20/24 08:52 12/20/24 07:40 12/20/24 08:52 12/20/24 07:40
Review of Systems
-
All other systems: Reviewed and negative
Physical Exam
-
General: No Apparent Distress
HEENT: Moist Mucous Membranes, Anicteric and PERRLA
Respiratory: Clear to Auscultation; Negative Wheezes, Rales or Rhonchi
Cardiac: Regular Rhythm and S1/S2; Negative Murmur, Rub or Gallop
GI: Soft, Nontender, Nondistended and Normal Bowel Sounds
Musculoskeletal: No Edema
Skin: Warm and Dry; Negative Rash, Ulcers or Lesions
Neuro: Awake, AO x 3, Tremors (Pill-rolling), Facial Droop (Right facial droop when smiling, right eyebrow does not raise as well as left) and Other (0 out of 5 right upper extremity strength, 5 out of 5 LUE and bilateral lower extremity strength);
Negative DTR's Intact & Symmetrica
Hematologic / Lymphatic: No Lymphadenopathy
Psych: Calm
Data Reviewed
-
CT Scan: Report Reviewed by me
Labs: Labs Reviewed by me and Discussed with Patient
--- NOTE | 2024-12-20 15:02 | CM ---
CM reviewed chart, patient seen bedside.
Patient is a 84-year-old male with past medical history significant CAD status post CABG, permanent atrial fibrillation peptic ulcer disease, history of prior subarachnoid hemorrhage presenting to the emergency department with stroke like symptoms.
Patient able to complete some initial assessment questions- call placed to to confirm IA.
Per , patient resides with in an apartment, second floor, with elevator access. reports patient does not use the elevator and will go up a flight of steps.
reports she is disabled, has two walkers, cane at home. Patient occasionally uses a cane.
reports patient has had VN in the past, unsure if it has benefited patient. 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
but unsure.
reports patient does have Dementia, woke up at 2:00 a.m. to make a cup of coffee, started screaming he was paralyzed, went to get patients walker and came back and patient was on floor and 911 was called.
reports patients son Jake lives in [place], is aware patient has been requiring more care at home.
PCP Dr. Storm, [facility] in [place].
Therapy recommendation of Acute Rehab, PMR consulted. agreeable for patient to get rehab prior to returning home.
CM discussed if Acute Rehab determines patient is not appropriate, can discuss SNF.
Will place referral to [facility].
Plan; referral to [facility], PMR consulted
--- NOTE | 2024-12-20 15:43 | PTOTSP ---
Speech Therapy Evaluation:
Pt with chronic risk factors of dysphagia including prior SAH, acutely compounded by concern for CVA. At bedside, oral phase slow but functional. No overt s/sx of aspiration. No chest imaging completed thus far, however WBC WNL, pt passed 3oz
swallow screen, pt afebrile, and on room air.
Recommend:
1. Regular solids and thin liquids
2. Medications as tolerated
3. General aspiration precautions
4. SUPPLY CHAIN TECHNICIAN to follow to monitor tolerance of diet and determine if pt would benefit from further language/cognitive assessment pending further workup.
[2024-12-20] MEDS: CRESTOR 10 MG PO (16:55)
--- NOTE | 2024-12-20 19:06 | CON.NEURO4 ---
Addendum entered and electronically signed by Harmeet Lott MD 12/20/24 20:12:
The patient is going to be transferred to [facility] for possible thrombectomy for the right M2 occlusion. The nurse practitioner Wyatt Mcdaniels was notified and she is in the process of transferring the patient. I also discussed the patient in detail
with the nurse practitioner Wyatt Mcdaniels and other nurses present on the floor where the patient is admitted, and they verbalized understanding of our discussion regarding the assessment and the management plan for the patient.
Original Note:
Consultation - Neurology 4
-
CONSULTING PHYSICIAN: Harmeet Lott MD
REFERRING PHYSICIAN: Linda Pedro
DICTATED BY: Harmeet Lott MD
DATE/TIME OF REQUEST: 12/20/2024
DATE/TIME OF CONSULTATION: 12/20/2024
Reason for Consultation: Stroke-like symptoms
Assessment and Plan:
The patient is an 84 years old male with a past medical history of CAD, atrial fibrillation on Xarelto, peptic ulcer disease and history of prior subarachnoid hemorrhage who presented to the emergency room with stroke-like symptoms. The last known
normal was at 10 PM when he went to sleep last night, and he says that when he woke up in the morning at around 3 AM today he felt that his left arm was weak and he fell out of his chair, also he says that he had speech difficulty when he woke up in
the morning today. The CT of the head did not show acute intracranial abnormality. The CTA of head and neck showed high-grade stenosis of the proximal right M2 branch with focal peripheral right M2 occlusion. MRI of the brain shows a
moderate-sized acute/subacute right parietal lobe infarct and there are additional tiny right parietal and occipital lobe infarcts. The patient needs to be transferred to [facility] for intervention for the right M2 occlusion. The patient was not a
candidate for thrombolytic therapy as he was on Xarelto.
History of Present Illness:
The patient is an 84 years old male with a past medical history of CAD, atrial fibrillation on Xarelto, peptic ulcer disease and history of prior subarachnoid hemorrhage who presented to the emergency room with stroke-like symptoms. The last known
normal was at 10 PM when he went to sleep last night, and he says that when he woke up in the morning at around 3 AM today he felt that his left arm was weak and he fell out of his chair, also he says that he had speech difficulty when he woke up in
the morning today. The CT of the head did not show acute intracranial abnormality. The CTA of head and neck showed high-grade stenosis of the proximal right M2 branch with focal peripheral right M2 occlusion. MRI of the brain shows a
moderate-sized nonhemorrhagic acute/subacute right parietal lobe infarct and there are additional tiny right parietal and occipital lobe infarcts. The patient needs to be transferred to [facility] for intervention for the right M2 occlusion. The
patient was not a candidate for thrombolytic therapy as he was on Xarelto.
Review of Systems: The 10 point review of systems were negative aside from as given in the history of present illness above.
Neurologic Examination:
The patient is alert and oriented x 3
Speech shows mild dysarthria
The cranial nerves II to XII are grossly intact.
The motor strength is 0/5 in the left upper extremity while it is 4/5 in the left lower extremity. The strength is grossly 5/5 in the right upper and lower extremities.
The sensations are grossly intact
[2024-12-20] MEDS: TOPROL XL PO (19:53)
--- NOTE | 2024-12-20 23:00 | PTCARENOTE ---
Pt NIH=11. see work list. confirmed w/ AM nurse - he was a [address] Lott evaluated pt and stated he wanted pt transfered to [facility]. informed him the order had to be placed and he had to call [facility] to get patient admitted. Requested MOLDING ENGINEER
covering the floor. ANYI Mcdaniels s/w Dr. Lott. ANYI Mcdaniels called and s/w [facility] doctor. later updated that pt is not to be transferred.
--- NOTE | 2024-12-20 23:47 | W.PN.UPDATE ---
Update Note
Progress Note Update
1937 RN called this SOFTBALL UMPIRE to see the neurologist Dr. Lott as he wanted patient to be transferred to [facility] as soon as possible.
Dr. Lott showed reports of MRI and insisted this patient to be transferred out as soon for a possible Thrombectomy
Patient seen and evaluated. Ox3, mild dysarthria, mild aphasia. Left arm flaccid. left leg with drift <5 sec, sensation loss in left arm, NIH 11 GCS 15
Called Neurologist spinning bath person at [facility] for transfer confirmation
discussed the plan placed by Dr. Lott. Neuro assessment addressed. Impressions of MRI images read to spinning bath person Neurologist at [facility]
Requested images of CT Head, CT Brain, CTA Head/Neck Brain MRI, RN, tech, animal hospital office supervisor confirms images send.
Neurologist stated he will call back after reading images.
2200 Called Neurologist spinning bath person for update, stated awaiting for Images
confirmed with Nursing supervisors that the images were send.
2300 Called [facility] neurologist again for any update
stated no transfer needed at this time
[2024-12-21] VITALS (8 sets, daily range): BP systolic 108–158; BP diastolic 64–90; PULSE 91–95; O2SAT 99
[2024-12-21 07:45] LABS: Hematocrit 35.7 % (39.0-52.0); Hemoglobin 11.7 g/dL (13.0-18.0); Mean Corp Hgb Conc. 32.8 g/dL (33.0-37.0); Mean Corpuscular Volume 86.9 fL (80.0-94.0); Platelet Count 200 10^3/uL (130-400); Red Cell Dist. Width 16.2 % (11.5-14.5)
[2024-12-21 08:12] LABS: Blood Urea Nitrogen 14 mg/dl (9-20); Calcium 9.0 mg/dl (8.4-10.2); Carbon Dioxide 26 mmol/L (22-30); Chloride 107 mmol/L (98-107); Estimated Creatinine Clearance 73 ml/min; Glucose 107 mg/dl (70-99); HDL Cholesterol 48 mg/dl; LDL Cholesterol, Calculated 101 mg/dl; Magnesium 2.0 mg/dl (1.6-2.3); Potassium 3.9 mmol/L (3.5-5.1); Sodium 138 mmol/L (135-145); Very Low Density Lipoprotein 24 mg/dl (0-30); eGFR > 60.00
[2024-12-21] MEDS: TOPROL XL 50 MG PO ×2 (08:13→19:31)
[2024-12-21] MEDS: LOW STRENGTH ASPIRIN 81 MG PO (08:13)
[2024-12-21] MEDS: IMDUR (EXTENDED RELEASE) 30 MG PO (08:13)
[2024-12-21] MEDS: FLOMAX 0.4 MG PO (08:13)
--- NOTE | 2024-12-21 09:49 | CM ---
CM reviewed chart, patient seen in chair.
CM discussed acute rehab recommendation- patient agreeable to [facility].
PMR consult placed.
No auth required, updates sent to [facility] via [facility].
CM will continue to follow for all d/c planning needs.
Plan; Referral to [facility], PMR consulted
--- NOTE | 2024-12-21 15:11 | W.PN.HOSP.TC ---
Today's Communication/Plan
-
see note
Assessment / Plan
Assessment / Plan
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
Acute CVA -
likely cardioembolic on the basis of atrial fibrillation
no TNK given pt on xarelto and h/o SAH
CTA head and neck showed High-grade focal stenosis of the proximal right M2 branch with focal peripheral right M2 occlusion in the posterior right sylvian fissure.
MRI brain shows Moderate-sized nonhemorrhagic acute/subacute right parietal lobe infarct. Additional tiny right parietal and occipital lobe infarcts.
Neurology consulted, they attempted to transfer to [facility] for thrombectomy of R M2 occlusion last night, request was reviewed by [facility] physician and not felt to be required
tele monitoring
Echo performed see above
permissive HTN 24-48h then slowly normalize
- no evidence of hemorrhage on CT/CT angio
- suspect AFIB as etiology, loaded with ASA/Plavix in ED, if MRI w/o bleed, and w/o large acute infarct can switch to AC, await neuro recs
- continue asa 81 for now
- PT/OT/Speech
Afib
Rate controlled
Continue metoprolol
AC awaiting neuro recs as above
HTN
BP controlled
Continue isosorbide mononitrate and metoprolol
h/o SAH
anxiety/depression
Lexapro, trazodone
DVT PPX - SCDs for now
Code status - DNR
Anticipated Discharge: 24 - 48 hours
Subjective/Interval History
-
Date of Service: December 21, 2024
Patient denies any acute issues overnight, his arm strength is still 0
Objective Data
-
Labs:
Laboratory Results
12/21/24
07:03
WBC 5.8
Hgb 11.7 L
Hct 35.7 L
Plt Count 200
Sodium 138
Potassium 3.9
Chloride 107
Carbon Dioxide 26
BUN 14
Creatinine 0.8
Glucose 107 H
Calcium 9.0
Vital Signs:
Vital Signs
Temp Pulse Resp BP Pulse Ox
97.5 F 65 16 108/64 98
12/21/24 11:21 12/21/24 11:21 12/21/24 11:21 12/21/24 11:21 12/21/24 11:21
I&O
12/20/24 12/21/24 12/22/24
06:59 06:59 06:59
Intake Total 600 / 600
Output Total 1325 / 1325
Balance -725 / -725
Review of Systems
-
All other systems: Reviewed and negative
Physical Exam
-
General: No Apparent Distress and Other (flat affect)
HEENT: Moist Mucous Membranes, Anicteric and PERRLA
Respiratory: Clear to Auscultation; Negative Wheezes, Rales or Rhonchi
Cardiac: Regular Rhythm and S1/S2; Negative Murmur, Rub or Gallop
GI: Soft, Nontender, Nondistended and Normal Bowel Sounds
Musculoskeletal: No Edema
Skin: Warm and Dry; Negative Rash, Ulcers or Lesions
Neuro: Awake, AO x 3, Tremors (Pill-rolling), Facial Droop (Right facial droop when smiling, right eyebrow does not raise as well as left) and Other (0 out of 5 right upper extremity strength, 5 out of 5 LUE and bilateral lower extremity strength);
Negative DTR's Intact & Symmetrica
Hematologic / Lymphatic: No Lymphadenopathy
Psych: Calm
Data Reviewed
-
CT Scan: Report Reviewed by me
Labs: Labs Reviewed by me and Discussed with Patient
--- NOTE | 2024-12-21 16:11 | PTOTSP ---
Speech Therapy Evaluation:
Given acute/subacute CVA, cognition was assessed via SLUMS. Pt earned an overall score of 11/30, indicative of neurocognitive impairment per parameters of this assessment. Pt earned reductions in orientation, basic math, generative naming/processing
speed, delayed recall of 5 words, digit recall reverse order, visuospatial for clock, and story recall. Given reported baseline of dementia (via ) and known cognitive deficits from prior CVA, difficult to differentiate new vs old deficits. Pt
reported he does not feel at his cognitive baseline and would like to continue SCHOLARSHIP COUNSELOR services to address cognition. SCHOLARSHIP COUNSELOR to follow at acute care level to target factional cognitive linguistic skills.
--- NOTE | 2024-12-21 16:23 | W.PN.NEURO.1 ---
Today's Communication / Plan
-
The patient is an 84 years old male with a past medical history of CAD, atrial fibrillation on Xarelto, peptic ulcer disease and history of prior subarachnoid hemorrhage who presented to the emergency room with stroke-like symptoms. The last known
normal was at 10 PM when he went to sleep at night, and he says that when he woke up in the morning at around 3 AM on 12/20, he felt that his left arm was weak and he fell out of his chair, also he says that he had speech difficulty when he woke up.
The CT of the head did not show acute intracranial abnormality. The CTA of head and neck showed high-grade stenosis of the proximal right M2 branch with focal peripheral right M2 occlusion.
MRI of the brain shows a moderate-sized acute/subacute right parietal lobe infarct and there are additional tiny right parietal and occipital lobe infarcts. The pattern of infarcts on the MRI suggests that these are secondary to emboli, likely
cardioemboli.
The echocardiogram was done that showed an ejection fraction of 55 to 60% and there was mitral leaflet thickening, mitral annular calcification, trace mitral regurgitation and dilated left atrium.
An effort was made to transfer the patient to [facility] yesterday for possible thrombolytic therapy due to the right M2 occlusion, but the patient could not be transferred as the [facility] neurologist stated that there was no transfer needed at this time.
The patient had a stroke while being on Xarelto therefore the patient may be started on Eliquis 5 mg twice a day and Xarelto is to be discontinued.
The neurologic examination essentially is unchanged since yesterday.
Will sign off please call if you have any question.
Subjective/Objective
Subjective Data
Date of Service: December 21, 2024
The patient is an 84 years old male with a past medical history of CAD, atrial fibrillation on Xarelto, peptic ulcer disease and history of prior subarachnoid hemorrhage who presented to the emergency room with stroke-like symptoms. The last known
normal was at 10 PM when he went to sleep at night, and he says that when he woke up in the morning at around 3 AM on 12/20, he felt that his left arm was weak and he fell out of his chair, also he says that he had speech difficulty when he woke up.
The CT of the head did not show acute intracranial abnormality. The CTA of head and neck showed high-grade stenosis of the proximal right M2 branch with focal peripheral right M2 occlusion.
MRI of the brain shows a moderate-sized acute/subacute right parietal lobe infarct and there are additional tiny right parietal and occipital lobe infarcts. The pattern of infarcts on the MRI suggests that these are secondary to emboli, likely
cardioemboli.
An effort was made to transfer the patient to [facility] yesterday for possible thrombolytic therapy due to the right M2 occlusion, but the patient could not be transferred as the [facility] neurologist stated that there was no transfer needed at this time.
The patient had a stroke while being on Xarelto therefore the patient may be started on Eliquis 5 mg twice a day and Xarelto is to be discontinued.
The echocardiogram was done that showed an ejection fraction of 55 to 60% and there was mitral leaflet thickening, mitral annular calcification, trace mitral regurgitation and dilated left atrium.
The neurologic examination essentially is unchanged since yesterday.
Objective Data
Vital Signs
Temp Pulse Resp BP Pulse Ox
36.9 C 78 18 127/73 100
12/21/24 15:40 12/21/24 15:40 12/21/24 15:40 12/21/24 15:40 12/21/24 15:40
Lab Results
12/21/24 07:03
12/21/24 07:03
PT 14.6 Sec (11.4-14.6) 12/20/24 03:44
INR 1.11 12/20/24 03:44
APTT 25.9 Sec (23.4-35.0) 12/20/24 03:44
Sodium 138 mmol/L (135-145) 12/21/24 07:03
Potassium 3.9 mmol/L (3.5-5.1) 12/21/24 07:03
BUN 14 mg/dl (9-20) 12/21/24 07:03
Glucose 107 mg/dl (70-99) H 12/21/24 07:03
Calcium 9.0 mg/dl (8.4-10.2) 12/21/24 07:03
LDL Cholesterol, Calc 101 mg/dl 12/21/24 07:03
Patient Allergies
atorvastatin Allergy (Verified 12/20/24 03:45)
gi problems
Vital Signs and Labs
-
Vital Signs and Labs:
Vital Signs
Temp Pulse Resp BP Pulse Ox
36.9 C 78 18 127/73 100
12/21/24 15:40 12/21/24 15:40 12/21/24 15:40 12/21/24 15:40 12/21/24 15:40
Lab Results
12/21/24 07:03
12/21/24 07:03
PT 14.6 Sec (11.4-14.6) 12/20/24 03:44
INR 1.11 12/20/24 03:44
APTT 25.9 Sec (23.4-35.0) 12/20/24 03:44
Sodium 138 mmol/L (135-145) 12/21/24 07:03
Potassium 3.9 mmol/L (3.5-5.1) 12/21/24 07:03
BUN 14 mg/dl (9-20) 12/21/24 07:03
Glucose 107 mg/dl (70-99) H 12/21/24 07:03
Calcium 9.0 mg/dl (8.4-10.2) 12/21/24 07:03
LDL Cholesterol, Calc 101 mg/dl 12/21/24 07:03
Medications
-
Active Medications
Generic Name Dose Route Start Last Admin
Trade Name Freq PRN Reason Stop Dose Admin
Acetaminophen 650 mg 12/20/24 07:53
Acetaminophen 650 Mg Rectal Suppository RECTAL 01/17/25 07:52
Q4HPRN PRN
VILLATORO, mild pain, or temp >100.4F
Acetaminophen 650 mg 12/20/24 07:53
Acetaminophen 325 Mg Tablet PO 01/17/25 07:52
Q4HPRN PRN
VILLATORO, mild pain, or temp >100.4F
Aspirin 81 mg 12/21/24 08:00 12/21/24 08:13
Aspirin 81 Mg Chewable Tablet PO 01/18/25 07:59 81 mg
DAILY AFIA Administration
Isosorbide Mononitrate 30 mg 12/20/24 08:00 12/21/24 08:13
Isosorbide Mononitrate 30 Mg Extended Release Tablet PO 01/17/25 07:59 30 mg
DAILY AFIA Administration
Lorazepam 0.5 mg 12/20/24 17:21
Lorazepam 0.5 Mg Tablet PO
ONCE PRN PRN
mri
Magnesium Hydroxide 30 ml 12/20/24 07:53
Milk Of Magnesia 30 Ml Cup PO 01/17/25 07:52
BIDPRN PRN
constipation
Metoprolol Succinate 50 mg 12/20/24 08:00 12/21/24 08:13
Metoprolol 50 Mg Extended Release Tablet PO 01/17/25 07:59 50 mg
BID AFIA Administration
Rosuvastatin Calcium 10 mg 12/20/24 18:00 12/20/24 16:55
Rosuvastatin (Crestor) 10 Mg Tablet PO 01/17/25 17:59 10 mg
QPM AFIA Administration
Tamsulosin HCl 0.4 mg 12/20/24 08:00 12/21/24 08:13
Tamsulosin 0.4 Mg Capsule PO 01/17/25 07:59 0.4 mg
DAILY AFIA Administration
Trazodone HCl 100 mg 12/20/24 22:00
Trazodone 100 Mg Tablet PO 01/17/25 21:59
HS PRN
insomnia
Home Medications
�Medication �Instructions �Recorded
escitalopram oxalate 10 mg tablet 10 mg PO DAILY #1 tab 10/29/24
isosorbide mononitrate 30 mg 30 mg PO DAILY #1 tab 10/29/24
tablet,extended release 24 hr
metoprolol succinate 50 mg 50 mg PO BID #1 tab 10/29/24
tablet,extended release 24 hr
rivaroxaban 20 mg tablet (Xarelto) 20 mg PO QPM #1 tab 10/29/24
rosuvastatin 10 mg tablet 10 mg PO QPM #1 tab 10/29/24
tamsulosin 0.4 mg capsule 0.4 mg PO DAILY #1 cap 10/29/24
trazodone 100 mg tablet 100 mg PO HS #1 tab 10/29/24
[2024-12-21] MEDS: TYLENOL 650 MG PO (18:05)
[2024-12-21] MEDS: CRESTOR 10 MG PO (18:06)
[2024-12-22 03:00] VITALS: BP 164/79
[2024-12-22 07:40] VITALS: BP 183/98
[2024-12-22 07:40] LABS: Hematocrit 36.9 % (39.0-52.0); Hemoglobin 12.9 g/dL (13.0-18.0); Mean Corp Hgb Conc. 35.0 g/dL (33.0-37.0); Mean Corpuscular Volume 81.5 fL (80.0-94.0); Platelet Count 212 10^3/uL (130-400); Red Cell Dist. Width 15.8 % (11.5-14.5)
[2024-12-22 08:20] LABS: Blood Urea Nitrogen 12 mg/dl (9-20); Calcium 9.1 mg/dl (8.4-10.2); Carbon Dioxide 27 mmol/L (22-30); Chloride 108 mmol/L (98-107); Estimated Creatinine Clearance 84 ml/min; Glucose 107 mg/dl (70-99); Potassium 3.8 mmol/L (3.5-5.1); Sodium 139 mmol/L (135-145); eGFR > 60.00
[2024-12-22] MEDS: IMDUR (EXTENDED RELEASE) 30 MG PO (08:56)
[2024-12-22] MEDS: TOPROL XL 50 MG PO ×2 (08:56→19:37)
[2024-12-22] MEDS: FLOMAX 0.4 MG PO (08:56)
[2024-12-22] MEDS: LOW STRENGTH ASPIRIN 81 MG PO (08:57)
--- NOTE | 2024-12-22 09:21 | W.PN.HOSP.TC ---
Today's Communication/Plan
-
BP uncontrolled, adjust meds
Eliquis BID
dc to [facility] tomorrow if BP controlled
Assessment / Plan
Assessment / Plan
84M W/CAD s/p CABG, AF, PUD, SAH, P/W left side weakness. (error on previous notes)
Acute CVA -
left arm weakness (0/5)
likely cardioembolic on the basis of atrial fibrillation
no TNK given pt on xarelto and h/o SAH
CTA head and neck showed High-grade focal stenosis of the proximal right M2 branch with focal peripheral right M2 occlusion in the posterior right sylvian fissure.
MRI brain shows Moderate-sized nonhemorrhagic acute/subacute right parietal lobe infarct. Additional tiny right parietal and occipital lobe infarcts.
Neurology consulted, they attempted to transfer to [facility] for thrombectomy of R M2 occlusion last night, request was reviewed by [facility] physician and not felt to be required
tele monitoring
Echo performed see above
permissive HTN 24-48h then slowly normalize --> add on lisinopril
- no evidence of hemorrhage on CT/CT angio
- suspect AFIB, add eliquis
- stop asa 81
- PT/OT/Speech rec acute rehab at [facility] on dc
Afib
Rate controlled
Continue metoprolol
BID eliquis
HTN
BP uncontrolled
Continue isosorbide mononitrate and metoprolol, add lisinopril
h/o SAH
anxiety/depression
Lexapro, trazodone
DVT PPX - SCDs for now
Code status - DNR
Anticipated Discharge: Within 24 hours
Subjective/Interval History
-
Date of Service: December 22, 2024
Patient states he is feeling well, denies any issues overnight, feels his left leg is stronger than it was
Objective Data
-
Labs:
Laboratory Results
12/22/24
07:00
WBC 5.6
Hgb 12.9 L
Hct 36.9 L
Plt Count 212
Sodium 139
Potassium 3.8
Chloride 108 H
Carbon Dioxide 27
BUN 12
Creatinine 0.7
Glucose 107 H
Calcium 9.1
Vital Signs:
Vital Signs
Temp Pulse Resp BP Pulse Ox
97.8 F 72 18 183/98 99
12/22/24 07:40 12/22/24 08:56 12/22/24 07:40 12/22/24 08:56 12/22/24 07:40
I&O
12/21/24 12/22/24 12/23/24
06:59 06:59 06:59
Intake Total 600 / 600 600 / 600
Output Total 1325 / 1325 1600 / 1600
Balance -725 / -725 -1000 / -1000
Review of Systems
-
All other systems: Reviewed and negative
Physical Exam
-
General: No Apparent Distress and Other (flat affect)
HEENT: Moist Mucous Membranes, Anicteric and PERRLA
Respiratory: Clear to Auscultation; Negative Wheezes, Rales or Rhonchi
Cardiac: Regular Rhythm and S1/S2; Negative Murmur, Rub or Gallop
GI: Soft, Nontender, Nondistended and Normal Bowel Sounds
Musculoskeletal: No Edema
Skin: Warm and Dry; Negative Rash, Ulcers or Lesions
Neuro: Awake, AO x 3, Tremors (Pill-rolling), Facial Droop (left facial droop improved, left eyebrow symmetrical - ERROR on previous notes) and Other (0 out of 5 LEFT upper extremity strength, 5 out of 5 RUE and bilateral lower extremity strength -
error on previous notes); Negative DTR's Intact & Symmetrica
Hematologic / Lymphatic: No Lymphadenopathy
Psych: Calm
Data Reviewed
-
CT Scan: Report Reviewed by me
Labs: Labs Reviewed by me and Discussed with Patient
[2024-12-22] MEDS: ZESTRIL 10 MG PO (10:21)
--- NOTE | 2024-12-22 10:54 | CM ---
CM reviewed chart, patient seen in chair.
[facility] able to accept once stable, will have bed tomorrow.
Per Hospitalist, potential d/c tomorrow if BP controlled.
CM will continue to follow.
Plan; [facility] once stable, will have a bed tomorrow
[facility]
Report: [phone]
[2024-12-22 11:40] VITALS: BP 118/76
[2024-12-22] MEDS: ATARAX 10 MG PO (12:49)
[2024-12-22 15:34] VITALS: BP 119/70
[2024-12-22] MEDS: TYLENOL 650 MG PO (15:58)
[2024-12-22] MEDS: CRESTOR 10 MG PO (16:03)
[2024-12-22 19:00] VITALS: BP 113/72
[2024-12-22] MEDS: ELIQUIS 5 MG PO (19:37)
[2024-12-22 23:09] VITALS: BP 125/76
[2024-12-23 03:00] VITALS: BP 138/74
[2024-12-23 07:00] VITALS: BP 154/81
[2024-12-23 07:31] LABS: Hematocrit 37.2 % (39.0-52.0); Hemoglobin 12.3 g/dL (13.0-18.0); Mean Corp Hgb Conc. 33.1 g/dL (33.0-37.0); Mean Corpuscular Volume 86.1 fL (80.0-94.0); Platelet Count 195 10^3/uL (130-400); Red Cell Dist. Width 15.8 % (11.5-14.5)
[2024-12-23 07:54] LABS: Blood Urea Nitrogen 14 mg/dl (9-20); Calcium 9.0 mg/dl (8.4-10.2); Carbon Dioxide 27 mmol/L (22-30); Chloride 106 mmol/L (98-107); Estimated Creatinine Clearance 73 ml/min; Glucose 109 mg/dl (70-99); Potassium 3.7 mmol/L (3.5-5.1); Sodium 137 mmol/L (135-145); eGFR > 60.00
[2024-12-23] MEDS: LIDOCAINE 4% PATCH 1 PATCH TOPICAL (08:33)
[2024-12-23] MEDS: TOPROL XL 50 MG PO (08:33)
[2024-12-23] MEDS: LEXAPRO 10 MG PO (08:34)
[2024-12-23] MEDS: ZESTRIL 10 MG PO (08:34)
[2024-12-23] MEDS: IMDUR (EXTENDED RELEASE) 30 MG PO (08:34)
[2024-12-23] MEDS: ELIQUIS 5 MG PO (08:34)
[2024-12-23] MEDS: FLOMAX 0.4 MG PO (08:34)
[2024-12-23] MEDS: TYLENOL 650 MG PO (08:34)
--- NOTE | 2024-12-23 08:37 | CM ---
Addendum entered by Elke Garcia 12/23/24 12:12:
family aware and reviewed verbally IMM. transfer to [facility] today.
Addendum entered by Elke Garcia 12/23/24 11:23:
Patient accepted for transfer to [facility] today after noon. Patient given IMM and updated at bedside about transfer. CM will update patient family as well.
Original Note:
Per Liaison from [facility] bed is available if physician feels appropriate. CM updated physician and await response.
--- NOTE | 2024-12-23 11:15 | W.DCSUMMARY ---
Discharge Summary
Discharge Data
Date of Admission: 12/20/24
Date of Discharge: 12/23/24
Total time spent discharging patient (in min): 31
-
Pending Results: No
Hospital Course
Attending physician on day of discharge:
Linda Pedro MD
Admission diagnosis:
Acute CVA
Discharge diagnosis:
Acute/subacute right parietal lobe infarct, right parietal and occipital lobe infarcts, secondary to emboli, likely cardioembolic
Secondary diagnoses:
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
A-fib
HTN
History of subarachnoid hemorrhage
Anxiety/depression
Chronic L shoulder pain
Consultations:
Neurology
Procedures:
None
Hospital course:
84M W/CAD s/p CABG, AF, PUD, SAH, P/W left side weakness, aphasia. Patient was felt to have acute CVA, CTA head and neck showed M2 occlusion, MRI brain showed right parietal lobe infarct. Neurology consulted, they attempted to transfer to [facility]
for thrombectomy of R M2 occlusion, request was reviewed by [facility] physician and not felt to be required. Placed on stroke protocol, including permissive HTN, patient was resumed on his home Imdur, beta-lars, and lisinopril was added for control
of BP. He left arm continued to be weak 0 out of 5 strength. Patient had A-fib and AC was changed from Xarelto to Eliquis. Patient endorsed anxiety, and requested benzos, review of [facility] show patient is not on a chronic benzo, his prescription for
such was discontinued 1 year ago. Endorsed left shoulder pain, on further questioning he reports his chronic pain that he has at home, and is unchanged. Exam did not elicit any pain on full ROM.
Physical exam on discharge:
General: No Apparent Distress and Other (flat affect)
HEENT: Moist Mucous Membranes, Anicteric and PERRLA
Respiratory: Clear to Auscultation; Negative Wheezes, Rales or Rhonchi
Cardiac: Regular Rhythm and S1/S2; Negative Murmur, Rub or Gallop
GI: Soft, Nontender, Nondistended and Normal Bowel Sounds
Musculoskeletal: No Edema, full painless ROM of left arm/shoulder
Skin: Warm and Dry; Negative Rash, Ulcers or Lesions
Neuro: Awake, AO x 3, Tremors (Pill-rolling), Facial Droop (left facial droop improved, left eyebrow symmetrical ) and Other (0 out of 5 LEFT upper extremity strength, 5 out of 5 RUE and bilateral lower extremity strength ); Negative DTR's Intact &
Symmetrica
Hematologic / Lymphatic: No Lymphadenopathy
Psych: Calm
Diagnostic findings:
LDL 101
CTh: FINDINGS:
There are no acute abnormalities.
There is no intracranial hemorrhage.
Small old infarct is seen in the left davis radiata.
There are no abnormal extra-axial fluid collections.
There are no focal areas of diminished density to suggest recent infarct.
There is again seen diffuse cortical atrophy as evidenced by prominence of the CSF spaces.
Additionally, there are again noted punctate and patchy areas of low density in the periventricular and subcortical white matter bilaterally. These white matter changes are nonspecific but given the patient's age are most likely ischemic or
degenerative in origin. Such white matter changes are often seen in older individuals and typically do not correlate clinically.
CTA head and neck:
IMPRESSION: Nonhemodynamically significant stenoses of the proximal internal carotid arteries bilaterally. No findings to suggest internal carotid artery dissection bilaterally.
High-grade focal stenosis of the proximal right M2 branch with focal peripheral right M2 occlusion in the posterior right sylvian fissure.
Moderate multifocal stenoses of the proximal left M2 branches and moderate multifocal peripheral RAMA stenoses.
MRI brain:IMPRESSION:
Moderate-sized nonhemorrhagic acute/subacute right parietal lobe infarct. Additional tiny right parietal and occipital lobe infarcts.
Echo:
1. Asymmetric septal hypertrophy with preserved systolic function, EF 55-60%. LV myocardium is somewhat speckled. No LVOT gradient.
2. Mitral leaflet thickening, mitral annular calcification, trace mitral regurgitation and dilated left atrium.
3. Mild to moderate aortic stenosis with mild aortic regurgitation, peak/mean gradient 20/11 mmHg.
4. Normal right heart, pulmonary artery systolic pressure is 16 mmHg.
5. An echocardiogram in July 2022 showed an EF of 50-55%, there was mild mitral regurgitation and mild aortic stenosis, peak/mean gradient 16/10 mmHg, valve area 1.3 cm2 with mild AI. Pulmonary artery systolic pressure was 20-25 mmHg.
Discharge disposition:
[facility]
Discharge Plan
-
Patient Disposition: Acute Rehab Facility
Discharge Diagnosis/Procedures: Acute stroke
Diet: Regular and Low Cholesterol
Activity: As tolerated
Other Services: PT, OT and ST
Referrals:
Harmeet Lott MD [Active, Neurology]
UNKNOWN - PT DOES,NOT KNOW [Family Provider]
Prescriptions:
New
lisinopril 10 mg Tablet
10 mg PO DAILY Qty: 0 0RF
Eliquis 5 mg Tablet
5 mg PO BID Qty: 0 0RF
Continued
metoprolol succinate 50 mg Tablet Extended Release 24 Hr
50 mg PO BID Qty: 1 0RF
isosorbide mononitrate 30 mg Tablet Extended Release 24 Hr
30 mg PO DAILY Qty: 1 0RF
tamsulosin 0.4 mg Capsule
0.4 mg PO DAILY Qty: 1 0RF
trazodone 100 mg Tablet
100 mg PO HS Qty: 1 0RF
escitalopram oxalate 10 mg Tablet
10 mg PO DAILY Qty: 1 0RF
rosuvastatin 10 mg Tablet
10 mg PO QPM Qty: 1 0RF
Discontinued
Xarelto 20 mg Tablet
20 mg PO QPM Qty: 1 0RF
Discharge Orders:
Discharge Patient (As Directed); Ordered 12/23/24
Ordered By: Linda Pedro
Discharge Date and Time
Print Language: HUNGARIAN
[2024-12-23 11:50] VITALS: BP 124/56
[2024-12-23] MEDS: ZOFRAN 4 MG IV (12:52)
[2024-12-23] MEDS: FLUZONE HIGH-DOSE 2025-26 0.5 ML IM (12:55)
--- NOTE | 2024-12-23 14:16 | TRANSFER ---
Report called to Tiffani at [facility]. x 2 IVs removed. Tele removed. Patient to be transferred for rehab--patient is aware
== END 2024-12-23 15:49 | DRG 65 ==
LOC: 4 WEST ACU 05:42
PROVIDERS: ADMITTING PHYSICIAN Internal Medicine; ATTENDING PHYSICIAN Internal Medicine; CONSULT PHYSICIAN Psychiatry & Neurology Neurology; EMERGENCY PHYSICIAN Student in an Organized Health Care Education/Training Program
DX: I63.49 Cerebral infarction due to embolism of other cerebral artery (principal); D68.59 Other primary thrombophilia; I48.21 Permanent atrial fibrillation; G81.94 Hemiplegia, unspecified affecting left nondominant side; R47.01 Aphasia; E78.00 Pure hypercholesterolemia, unspecified; I10 Essential (primary) hypertension; I25.10 Atherosclerotic heart disease of native coronary artery without angina pectoris; E11.9 Type 2 diabetes mellitus without complications; N40.0 Benign prostatic hyperplasia without lower urinary tract symptoms; F32.A Depression, unspecified; I08.0 Rheumatic disorders of both mitral and aortic valves; G89.29 Other chronic pain; F41.9 Anxiety disorder, unspecified; R26.9 Unspecified abnormalities of gait and mobility; R29.810 Facial weakness; W07.XXXA Fall from chair, initial encounter; Y93.89 Activity, other specified; Y92.009 Unspecified place in unspecified non-institutional (private) residence as the place of occurrence of the external cause; Z66 Do not resuscitate; I25.2 Old myocardial infarction; Z86.73 Personal history of transient ischemic attack (TIA), and cerebral infarction without residual deficits; Z95.5 Presence of coronary angioplasty implant and graft; Z90.49 Acquired absence of other specified parts of digestive tract; Z79.899 Other long term (current) drug therapy; Z87.11 Personal history of peptic ulcer disease; Z95.1 Presence of aortocoronary bypass graft; Z63.4 Disappearance and death of family member; Z79.82 Long term (current) use of aspirin; Z88.8 Allergy status to other drugs, medicaments and biological substances
CPT/HCPCS: 0042T; 70450; 70496; 70498; 70551; 80048; 80053; 80061; 82962; 83735; 84484; 85025; 85027; 85610; 85652; 85730; 90662; 92523; 92526; 92610; 93005; 93306; 97112; 97163; 97167; 97530; 97535; 99291; G0008; Q9950; Q9967